=== PATIENT | male | born 1945 | race Caucasian/White ===

== ENCOUNTER 2017-04-19 22:32 | Inpatient (IN) | payer MEDICARE, MEDICAID ==
[2017-04-19 23:18] VITALS: BP 140/80
[2017-04-20] MEDS: Amoxicillin/Clavulanate 500/125 Tab PO SCH ×3 (05:10→21:25)
[2017-04-20] MEDS ORDERED: CARIPRAZINE HCL 1.5 MG PO SCH (09:00)
[2017-04-20] MEDS ORDERED: Non-Formulary Item 1 EA (Fenofibrate Nanocrystallized [Tricor] 145 MG) PO SCH (09:00)
[2017-04-20] MEDS: Multivitamin Tab PO SCH (09:52)
[2017-04-20] MEDS: Pantoprazole 40 mg EC Tab PO SCH (09:52)
[2017-04-20] MEDS: Fluticasone Propionate 0.05mg/Actuation 16gm Nasal Spray NS SCH (09:53)
[2017-04-20] MEDS ORDERED: Probiotic Screen MC PRN (10:00)
[2017-04-20] MEDS: OLANZapine 5 mg Oral Disintegrating Tab SL SCH (16:42)
--- NOTE | 2017-04-21 02:22 | Psychosocial Evaluation ---
DATE OF SERVICE: JUSTIFICATION FOR HOSPITALIZATION: Brought in and on hold for grave disability, disorganized, psychotic and delusional. 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 His address states that he is actually in [place], but it is unclear if he is living at that address. He is pretty disorganized and he is a difficult historian and not answering questions. Focused on being a psychiatrist. PAST PSYCHIATRIC HISTORY: Alludes to admissions in the past. FAMILY HISTORY: Noncontributory. SOCIAL HISTORY: States he was born in [place], not , no kids. States [place] He is a smoker. 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 MEDICATIONS: Reviewed. He states historically he has done well on Clozaril in the past and would like to be restarted on Clozaril. His medications right now include Zyprexa. MENTAL STATUS EXAMINATION: Disheveled, unkempt, rambling speech. Mood "okay." Affect flat. Thought processes were disorganized. No overt SI or HI. He seems to be responding to internal stimuli. Memory was checked. Insight and judgment diminished. PROVISIONAL DIAGNOSIS: Schizophrenia. Medical: Please see full H and P. Also nicotine use disorder, unspecified. ASSESSMENT: The patient requiring inpatient hospitalization, psychotic, disorganized, nonsensical, unable to care for his basic needs, concerns for his ability to provide for basic food, clothing, and group home. PLAN: Continue Klonopin. Continue Zyprexa. We will continue Lamictal if the patient's psychosis continues. I will transition him from Zyprexa to Clozaril, but given Clozaril side effect profile we will try Zyprexa at this time. CONDITIONS FOR DISCHARGE: Improved mood, improved affect, cessation of any SI or HI, better control of his psychotic symptoms, coordination of care with social work regarding safe discharge plan, good psychiatric followup. JOB# [id number]
[2017-04-21] MEDS: Amoxicillin/Clavulanate 500/125 Tab PO SCH ×3 (05:20→21:05)
[2017-04-21] MEDS: Multivitamin Tab PO SCH (08:05)
[2017-04-21] MEDS: Pantoprazole 40 mg EC Tab PO SCH (08:05)
[2017-04-21] MEDS: Fenofibrate, Micronized 134 mg Cap PO SCH (08:05)
[2017-04-21] MEDS: Fluticasone Propionate 0.05mg/Actuation 16gm Nasal Spray NS SCH (08:05)
[2017-04-21] MEDS: OLANZapine 5 mg Oral Disintegrating Tab SL SCH (08:05)
[2017-04-21] MEDS: Lactobacillus Rhamnosus GG 15 Billion CFU CAP.SPRINK PO SCH (08:05)
--- NOTE | 2017-04-21 23:45 | Progress Notes ---
DATE: 04/21/[address] Negrete. Case discussed with staff of the patient, reviewed records. This is a 71-year-old male who was admitted on the 04/19/2017, to the hospital because of a previous paranoid type to be delusional. He believes he is psychiatrist. He has a history of schizophrenia. He was delusional, paranoid. He lives in [place] and ____ he is nonsensical. The patient with a prior admission according to the records. The patient continues to be poor historian. ____ psychotic. He is on Lamictal 50 mg daily. He is on Lexapro 20 mg daily. He is on olanzapine 15 mg at bedtime, 5 mg in the morning and he is also on Ambien 5 mg at bedtime with no side effects, no sedation, no nausea, no extrapyramidal symptoms, so control. The patient in group therapy, milieu therapy, adjust medication as needed. JOB# [id number]
[2017-04-22] MEDS: Amoxicillin/Clavulanate 500/125 Tab PO SCH ×3 (05:35→21:35)
--- NOTE | 2017-04-22 08:22 | History & Physical ---
ADMIT DATE: 04/22/2017 CHIEF COMPLAINT: Agitation. HISTORY OF PRESENT ILLNESS: This is a 71-year-old male, who was originally admitted from [facility] due to pneumonia and dehydration and afterwards the patient was transferred to [facility] for further psychiatric management. REVIEW OF SYSTEM: GENERAL: This is a 71-year-old male, who appears as stated. No fever. No chills. HEAD: No headache. No dizziness. EYES: No eye pain, no blurring of vision. NECK: No neck pain. No nuchal rigidity. CHEST: No chest pain. No palpitation. PULMONARY: No coughing. No shortness of breath. GASTROINTESTINAL: No abdominal pain. No diarrhea. No constipation. MUSCULOSKELETAL: No muscle pain, no joint pain. SOCIAL HISTORY: The patient lives in a board and care prior to hospitalization. PAST SURGICAL HISTORY: Unremarkable. FAMILY HISTORY: Unremarkable. PAST MEDICAL HISTORY: Includes osteoarthritis, hypertension, hyperlipidemia. PHYSICAL EXAMINATION: VITAL SIGNS: Temperature 97, heart rate 63, blood pressure 127/66, respirations 20, 97% on room air. HEENT: Head is atraumatic, normocephalic. Eyes: Bilateral conjunctivae are clear. Bilateral pupils are equally round and reactive. NECK: Supple. No JVD. CARDIOVASCULAR: S1 and S2 without murmur. PULMONARY: Clear to auscultation. GASTROINTESTINAL: Soft and nontender without guarding. Positive bowel sounds. MUSCULOSKELETAL: No clubbing, no cyanosis noted. ASSESSMENT: 1. Schizophrenia. 2. Hypertension. 3. Hyperlipidemia. 4. Osteoarthritis. PLAN: We will admit the patient to psychiatric unit. We will follow up with the psychiatrist to monitor the patient's condition and behavior. Also, we will do medication reconciliation accordingly. Treatment plans were discussed with the patient nurse. Treatment plans discussed with Dr. Robertson. JOB# [id number]
[2017-04-22] MEDS: Multivitamin Tab PO SCH (08:59)
[2017-04-22] MEDS: OLANZapine 5 mg Oral Disintegrating Tab SL SCH (08:59)
[2017-04-22] MEDS: Pantoprazole 40 mg EC Tab PO SCH (08:59)
[2017-04-22] MEDS: Lactobacillus Rhamnosus GG 15 Billion CFU CAP.SPRINK PO SCH (09:00)
[2017-04-22] MEDS: Fenofibrate, Micronized 134 mg Cap PO SCH (09:00)
[2017-04-22] MEDS: Fluticasone Propionate 0.05mg/Actuation 16gm Nasal Spray NS SCH (12:23)
--- NOTE | 2017-04-22 20:29 | Progress Notes ---
DATE: 04/22/[address] Negrete. Case was discussed with staff of patient, reviewed records. The patient continues to be paranoid and delusional. Continues to believe he has ____ and that he is on room air. Continues to be unpredictable, impulsive, needing redirection, easily agitated. He is compliant with the medication with no side effects, no sedation, no nausea, no extrapyramidal symptoms. I will be increasing his Zyprexa dose in the morning to 10 mg and to help with his delusional behavior and we will continue to work with the patient in group therapy, milieu therapy, and adjust medications as needed. JOB# [id number]
[2017-04-23] MEDS: Amoxicillin/Clavulanate 500/125 Tab PO SCH ×3 (05:32→21:28)
[2017-04-23] MEDS: OLANZapine 10 mg Oral Disintegrating Tab SL SCH (08:34)
[2017-04-23] MEDS: Fenofibrate, Micronized 134 mg Cap PO SCH (08:34)
[2017-04-23] MEDS: Multivitamin Tab PO SCH (08:34)
[2017-04-23] MEDS: Pantoprazole 40 mg EC Tab PO SCH (08:34)
[2017-04-23] MEDS: Lactobacillus Rhamnosus GG 15 Billion CFU CAP.SPRINK PO SCH (08:34)
[2017-04-23] MEDS: Fluticasone Propionate 0.05mg/Actuation 16gm Nasal Spray NS SCH (08:36)
--- NOTE | 2017-04-23 10:19 | General Progress Note ---
Subjective - Review of Systems Events since last encounter: continues to be delusional paranoid ,anxious denies pain Objective - Physical Exam Vitals and I&O: Vital Signs Temp 98 F 04/23/17 08:00 Pulse 62 04/23/17 08:33 Resp 20 04/23/17 08:00 BP 125/75 04/23/17 08:33 Pulse Ox 97 04/23/17 08:00 Intake & Output 04/22/17 04/23/17 04/23/17 18:59 06:59 18:59 Intake Total 1200 480 Balance 1200 480 Intake: Oral 1200 480 Other: # Voids 3 2 # Bowel Movements 1 Stool Characteristics Hard Soft Brown Active Medications: Current Medications Acetaminophen (Tylenol) 650 mg PO Q4HR PRN PRN Reason: Mild Pain / Temp above 100 Stop: 06/18/17 23:12 Amlodipine Besylate (Norvasc) 5 mg PO QAM [facility] Stop: 06/19/17 08:59 Last Admin: 04/23/17 08:33 Dose: 5 mg Amoxicillin/Clavulanate Potassium (Augmentin 500-125mg) 1 tab PO Q8HR [facility] Stop: 06/19/17 04:59 Last Admin: 04/23/17 05:32 Dose: 1 tab Azithromycin (Zithromax) 250 mg PO DAILY [facility] Stop: 06/19/17 08:59 Last Admin: 04/23/17 08:34 Dose: 250 mg Clonazepam (Klonopin) 1 mg PO BID [facility] Stop: 06/21/17 08:59 Last Admin: 04/23/17 08:34 Dose: 1 mg Escitalopram Oxalate (Lexapro) 20 mg PO QAM [facility] PRN Reason: Protocol Stop: 06/19/17 08:59 Last Admin: 04/23/17 08:34 Dose: 20 mg Fenofibrate (Tricor) 134 mg PO DAILY [facility] Stop: 06/20/17 08:59 Last Admin: 04/23/17 08:34 Dose: 134 mg Fluticasone Propionate (Flonase) 2 spr NS DAILY [facility] Stop: 06/19/17 08:59 Last Admin: 04/23/17 08:36 Dose: 2 spr Lactobacillus Rhamnosus (Culturelle 15b) 1 each PO DAILY [facility] Stop: 06/20/17 08:59 Last Admin: 04/23/17 08:34 Dose: 1 each Lamotrigine (Lamictal) 150 mg PO QPM [facility] Stop: 06/19/17 16:59 Last Admin: 04/22/17 17:13 Dose: 150 mg Lorazepam (Ativan) 0.5 mg PO Q4HR PRN; Protocol PRN Reason: Anxiety Stop: 05/19/17 23:12 Miscellaneous (Cariprazine Hcl [Vraylar]) 1.5 mg PO QAM [facility] Stop: 06/19/17 08:59 Miscellaneous (Probiotic Screen) 1 ea [facility] PRN PRN PRN Reason: PROTOCOL Stop: 06/19/17 09:59 Multivitamins/Vitamin C (Theragran) 1 tab PO DAILY [facility] Stop: 06/19/17 08:59 Last Admin: 04/23/17 08:34 Dose: 1 tab Olanzapine (Zyprexa) 15 mg PO HS [facility] PRN Reason: Protocol Stop: 06/19/17 20:59 Last Admin: 04/22/17 21:35 Dose: 15 mg Olanzapine (Zyprexa Zydis) 10 mg SL QAM [facility] PRN Reason: Protocol Stop: 06/21/17 13:10 Last Admin: 04/23/17 08:34 Dose: 10 mg Oxybutynin Chloride (Ditropan) 5 mg PO BID [facility] Stop: 06/19/17 08:59 Last Admin: 04/23/17 08:34 Dose: 5 mg Pantoprazole Sodium (Protonix) 40 mg PO DAILY [facility] Stop: 06/19/17 08:59 Last Admin: 04/23/17 08:34 Dose: 40 mg Rivaroxaban (Xarelto) 15 mg PO QPM 1700 [facility] Stop: 06/19/17 16:59 Last Admin: 04/22/17 17:12 Dose: 15 mg Simvastatin (Zocor) 20 mg PO HS [facility] PRN Reason: Protocol Stop: 06/19/17 20:59 Last Admin: 04/22/17 21:35 Dose: 20 mg Zolpidem Tartrate (Ambien) 5 mg PO HS PRN PRN Reason: Insomnia Stop: 06/18/17 23:12 Last Admin: 04/22/17 01:46 Dose: 5 mg General: No acute distress HEENT: Atraumatic Neck: Supple Cardiovascular: Regular rate, Normal S1 Lungs: Clear to auscultation Abdomen: Bowel sounds Assessment/Plan - Problem List Patient Problems: All Active Problems HTN (hypertension) (Acute) I10 Hyperlipidemia (Acute) E78.5 Osteoarthritis (Acute) M19.90 Schizophrenia (Acute) F20.9 - Plan Plan: as per psych will monitor as problems arise
--- NOTE | 2017-04-23 17:51 | Progress Notes ---
DATE: 04/23/[address] Negrete. Case was discussed with staff of the patient, reviewed record. The patient continues to be irritable, confused, needs redirection. Continues to have poor insight. Continues to be easily agitated, irritable. I did increase his Zyprexa dose yesterday with no side effects, no sedation, no nausea, ____ symptoms and he is also on Lexapro 20 mg a day. We will continue to work with the patient in group therapy, milieu therapy, and adjust medication as needed. JOB# [id number]
[2017-04-24] MEDS: Amoxicillin/Clavulanate 500/125 Tab PO SCH ×3 (05:50→21:41)
[2017-04-24] MEDS: Lactobacillus Rhamnosus GG 15 Billion CFU CAP.SPRINK PO SCH (11:39)
[2017-04-24] MEDS: Fluticasone Propionate 0.05mg/Actuation 16gm Nasal Spray NS SCH (11:39)
[2017-04-24] MEDS: OLANZapine 10 mg Oral Disintegrating Tab SL SCH (11:39)
[2017-04-24] MEDS: Fenofibrate, Micronized 134 mg Cap PO SCH (11:39)
[2017-04-24] MEDS: Multivitamin Tab PO SCH (11:39)
[2017-04-24] MEDS: Pantoprazole 40 mg EC Tab PO SCH (11:40)
--- NOTE | 2017-04-24 12:36 | General Progress Note ---
Subjective - Review of Systems Events since last encounter: irritable confused Objective - Physical Exam Vitals and I&O: Vital Signs Temp 97.7 F 04/24/17 06:01 Pulse 54 04/24/17 06:01 Resp 20 04/24/17 06:01 BP 123/60 04/24/17 06:01 Pulse Ox 96 04/24/17 06:01 Intake & Output 04/23/17 04/24/17 04/24/17 18:59 06:59 18:59 Intake Total 700 360 Balance 700 360 Intake: Oral 700 360 Other: # Voids 6 1 # Bowel Movements 1 0 Stool Characteristics Soft Brown Active Medications: Current Medications Acetaminophen (Tylenol) 650 mg PO Q4HR PRN PRN Reason: Mild Pain / Temp above 100 Stop: 06/18/17 23:12 Amlodipine Besylate (Norvasc) 5 mg PO QAM [facility] Stop: 06/19/17 08:59 Last Admin: 04/23/17 08:33 Dose: 5 mg Amoxicillin/Clavulanate Potassium (Augmentin 500-125mg) 1 tab PO Q8HR [facility] Stop: 06/19/17 04:59 Last Admin: 04/24/17 05:50 Dose: 1 tab Azithromycin (Zithromax) 250 mg PO DAILY [facility] Stop: 06/19/17 08:59 Last Admin: 04/23/17 08:34 Dose: 250 mg Clonazepam (Klonopin) 1 mg PO BID [facility] Stop: 06/21/17 08:59 Last Admin: 04/24/17 11:39 Dose: 1 mg Escitalopram Oxalate (Lexapro) 20 mg PO QAM [facility] PRN Reason: Protocol Stop: 06/19/17 08:59 Last Admin: 04/24/17 11:39 Dose: 20 mg Fenofibrate (Tricor) 134 mg PO DAILY [facility] Stop: 06/20/17 08:59 Last Admin: 04/24/17 11:39 Dose: 134 mg Fluticasone Propionate (Flonase) 2 spr NS DAILY [facility] Stop: 06/19/17 08:59 Last Admin: 04/24/17 11:39 Dose: 2 spr Lactobacillus Rhamnosus (Culturelle 15b) 1 each PO DAILY [facility] Stop: 06/20/17 08:59 Last Admin: 04/24/17 11:39 Dose: 1 each Lamotrigine (Lamictal) 150 mg PO QPM [facility] Stop: 06/19/17 16:59 Last Admin: 04/23/17 16:30 Dose: 150 mg Lorazepam (Ativan) 0.5 mg PO Q4HR PRN; Protocol PRN Reason: Anxiety Stop: 05/19/17 23:12 Miscellaneous (Cariprazine Hcl [Vraylar]) 1.5 mg PO QAM [facility] Stop: 06/19/17 08:59 Miscellaneous (Probiotic Screen) 1 ea [facility] PRN PRN PRN Reason: PROTOCOL Stop: 06/19/17 09:59 Multivitamins/Vitamin C (Theragran) 1 tab PO DAILY [facility] Stop: 06/19/17 08:59 Last Admin: 04/24/17 11:39 Dose: 1 tab Olanzapine (Zyprexa) 15 mg PO HS [facility] PRN Reason: Protocol Stop: 06/19/17 20:59 Last Admin: 04/23/17 21:27 Dose: 15 mg Olanzapine (Zyprexa Zydis) 10 mg SL QAM [facility] PRN Reason: Protocol Stop: 06/21/17 13:10 Last Admin: 04/24/17 11:39 Dose: 10 mg Oxybutynin Chloride (Ditropan) 5 mg PO BID [facility] Stop: 06/19/17 08:59 Last Admin: 04/24/17 11:40 Dose: 5 mg Pantoprazole Sodium (Protonix) 40 mg PO DAILY [facility] Stop: 06/19/17 08:59 Last Admin: 04/24/17 11:40 Dose: 40 mg Rivaroxaban (Xarelto) 15 mg PO QPM 1700 [facility] Stop: 06/19/17 16:59 Last Admin: 04/23/17 16:31 Dose: 15 mg Simvastatin (Zocor) 20 mg PO HS [facility] PRN Reason: Protocol Stop: 06/19/17 20:59 Last Admin: 04/23/17 21:28 Dose: 20 mg Zolpidem Tartrate (Ambien) 5 mg PO HS PRN PRN Reason: Insomnia Stop: 06/18/17 23:12 Last Admin: 04/22/17 01:46 Dose: 5 mg General: No acute distress HEENT: Atraumatic Neck: Supple Cardiovascular: Regular rate, Normal S1 Lungs: Clear to auscultation Abdomen: Bowel sounds Assessment/Plan - Problem List Patient Problems: All Active Problems HTN (hypertension) (Acute) I10 Hyperlipidemia (Acute) E78.5 Osteoarthritis (Acute) M19.90 Schizophrenia (Acute) F20.9 - Plan Plan: as per psych will monitor as problems arise
--- NOTE | 2017-04-25 03:37 | Progress Notes ---
DATE: 04/24/2017 SUBJECTIVE: The patient seen, chart reviewed, discussed with staff. The patient remains symptomatic. 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 He seems to be taking his medications. The symptoms seem to be resolving to some extent. For example, he is somewhat calmer, more cooperative, but remains suspicious and reclusive. Medications reviewed. No side effects. ASSESSMENT: The patient remains delusional, paranoid, impulsive and unpredictable. PLAN: We will continue to monitor given ongoing symptoms, he is not safe for discharge. Continue medications at current dose. JOB# [id number]
[2017-04-25] MEDS: Amoxicillin/Clavulanate 500/125 Tab PO SCH ×3 (05:35→21:30)
[2017-04-25] MEDS: OLANZapine 10 mg Oral Disintegrating Tab SL SCH (09:30)
[2017-04-25] MEDS: Fluticasone Propionate 0.05mg/Actuation 16gm Nasal Spray NS SCH (09:30)
[2017-04-25] MEDS: Multivitamin Tab PO SCH (09:30)
[2017-04-25] MEDS: Lactobacillus Rhamnosus GG 15 Billion CFU CAP.SPRINK PO SCH (09:30)
[2017-04-25] MEDS: Fenofibrate, Micronized 134 mg Cap PO SCH (09:30)
[2017-04-25] MEDS: Pantoprazole 40 mg EC Tab PO SCH (09:30)
--- NOTE | 2017-04-25 18:48 | Internal Medicine Prog Note ---
Internal Medicine Subjective - Subjective Service Date: 04/25/17 Patient seen and examined:: with staff Patient is:: awake, confused Per staff patient has:: tolerating meds Internal Medicine Objective - Physical Exam Vitals and I&O: Vital Signs Temp 97 F 04/25/17 16:40 Pulse 84 04/25/17 16:40 Resp 20 04/25/17 16:40 BP 109/66 04/25/17 16:40 Pulse Ox 97 04/25/17 16:40 Intake & Output 04/24/17 04/25/17 04/25/17 18:59 06:59 18:59 Other: # Voids 3 # Bowel Movements 0 Stool Characteristics Hard Hard Hard Active Medications: Current Medications Acetaminophen (Tylenol) 650 mg PO Q4HR PRN PRN Reason: Mild Pain / Temp above 100 Stop: 06/18/17 23:12 Amlodipine Besylate (Norvasc) 5 mg PO QAM [facility] Stop: 06/19/17 08:59 Last Admin: 04/25/17 09:29 Dose: 5 mg Amoxicillin/Clavulanate Potassium (Augmentin 500-125mg) 1 tab PO Q8HR [facility] Stop: 06/19/17 04:59 Last Admin: 04/25/17 16:23 Dose: 1 tab Azithromycin (Zithromax) 250 mg PO DAILY [facility] Stop: 06/19/17 08:59 Last Admin: 04/25/17 09:29 Dose: 250 mg Clonazepam (Klonopin) 1 mg PO BID [facility] Stop: 06/21/17 08:59 Last Admin: 04/25/17 16:24 Dose: 1 mg Escitalopram Oxalate (Lexapro) 20 mg PO QAM [facility] PRN Reason: Protocol Stop: 06/19/17 08:59 Last Admin: 04/25/17 09:29 Dose: 20 mg Fenofibrate (Tricor) 134 mg PO DAILY [facility] Stop: 06/20/17 08:59 Last Admin: 04/25/17 09:30 Dose: 134 mg Fluticasone Propionate (Flonase) 2 spr NS DAILY [facility] Stop: 06/19/17 08:59 Last Admin: 04/25/17 09:30 Dose: 2 spr Lactobacillus Rhamnosus (Culturelle 15b) 1 each PO DAILY [facility] Stop: 06/20/17 08:59 Last Admin: 04/25/17 09:30 Dose: 1 each Lamotrigine (Lamictal) 150 mg PO QPM [facility] Stop: 06/19/17 16:59 Last Admin: 04/25/17 16:23 Dose: 150 mg Lorazepam (Ativan) 0.5 mg PO Q4HR PRN; Protocol PRN Reason: Anxiety Stop: 05/19/17 23:12 Miscellaneous (Cariprazine Hcl [Vraylar]) 1.5 mg PO QAM [facility] Stop: 06/19/17 08:59 Miscellaneous (Probiotic Screen) 1 ea [facility] PRN PRN PRN Reason: PROTOCOL Stop: 06/19/17 09:59 Multivitamins/Vitamin C (Theragran) 1 tab PO DAILY [facility] Stop: 06/19/17 08:59 Last Admin: 04/25/17 09:30 Dose: 1 tab Olanzapine (Zyprexa) 15 mg PO HS [facility] PRN Reason: Protocol Stop: 06/19/17 20:59 Last Admin: 04/24/17 21:37 Dose: 15 mg Olanzapine (Zyprexa Zydis) 10 mg SL QAM [facility] PRN Reason: Protocol Stop: 06/21/17 13:10 Last Admin: 04/25/17 09:30 Dose: 10 mg Oxybutynin Chloride (Ditropan) 5 mg PO BID [facility] Stop: 06/19/17 08:59 Last Admin: 04/25/17 16:23 Dose: 5 mg Pantoprazole Sodium (Protonix) 40 mg PO DAILY [facility] Stop: 06/19/17 08:59 Last Admin: 04/25/17 09:30 Dose: 40 mg Rivaroxaban (Xarelto) 15 mg PO QPM 1700 [facility] Stop: 06/19/17 16:59 Last Admin: 04/25/17 16:23 Dose: 15 mg Simvastatin (Zocor) 20 mg PO HS [facility] PRN Reason: Protocol Stop: 06/19/17 20:59 Last Admin: 04/24/17 21:37 Dose: 20 mg Zolpidem Tartrate (Ambien) 5 mg PO HS PRN PRN Reason: Insomnia Stop: 06/18/17 23:12 Last Admin: 04/24/17 21:37 Dose: 5 mg General: alert HEENT: NC/AT, PERRLA Neck: Supple Lungs: CTAB Extremities: clear Neurological: no change Internal Medicine Assmt/Plan - Plan Plan: as per psych will monitor as problems arise
--- NOTE | 2017-04-26 02:22 | Progress Notes ---
DATE: 04/25/2017 SUBJECTIVE: The patient is still symptomatic, bizarre, still talking of being a psychiatrist; however, he seems calmer, more cooperative. No agitation, no escalation of behaviors. It appears he is taking his medications. Concerns for grave disability, unable to really participate in self-care planning discussion. He states he is homeless. Currently on Zyprexa, tolerating well. ASSESSMENT: The patient remains symptomatic, somewhat withdrawn, still with evidence of psychosis and delusions and grandiosity. PLAN: Continue to monitor, continue to adjust and titrate medications. JOB# [id number]
[2017-04-26] MEDS: Amoxicillin/Clavulanate 500/125 Tab PO SCH ×3 (06:00→21:26)
--- NOTE | 2017-04-26 09:49 | General Progress Note ---
Subjective - Review of Systems Events since last encounter: still confused awak in no distress Objective - Physical Exam Vitals and I&O: Vital Signs Temp 97.9 F 04/26/17 05:36 Pulse 69 04/26/17 05:36 Resp 20 04/26/17 05:36 BP 102/61 04/26/17 05:36 Pulse Ox 94 04/26/17 05:36 Intake & Output 04/25/17 04/26/17 04/26/17 18:59 06:59 18:59 Intake Total 180 Balance 180 Intake: Oral 180 Other: # Voids 1 # Bowel Movements 0 Stool Characteristics Hard Hard Active Medications: Current Medications Acetaminophen (Tylenol) 650 mg PO Q4HR PRN PRN Reason: Mild Pain / Temp above 100 Stop: 06/18/17 23:12 Amlodipine Besylate (Norvasc) 5 mg PO QAM [facility] Stop: 06/19/17 08:59 Last Admin: 04/25/17 09:29 Dose: 5 mg Amoxicillin/Clavulanate Potassium (Augmentin 500-125mg) 1 tab PO Q8HR [facility] Stop: 06/19/17 04:59 Last Admin: 04/26/17 06:00 Dose: 1 tab Azithromycin (Zithromax) 250 mg PO DAILY [facility] Stop: 06/19/17 08:59 Last Admin: 04/25/17 09:29 Dose: 250 mg Clonazepam (Klonopin) 1 mg PO BID [facility] Stop: 06/21/17 08:59 Last Admin: 04/25/17 16:24 Dose: 1 mg Escitalopram Oxalate (Lexapro) 20 mg PO QAM [facility] PRN Reason: Protocol Stop: 06/19/17 08:59 Last Admin: 04/25/17 09:29 Dose: 20 mg Fenofibrate (Tricor) 134 mg PO DAILY [facility] Stop: 06/20/17 08:59 Last Admin: 04/25/17 09:30 Dose: 134 mg Fluticasone Propionate (Flonase) 2 spr NS DAILY [facility] Stop: 06/19/17 08:59 Last Admin: 04/25/17 09:30 Dose: 2 spr Lactobacillus Rhamnosus (Culturelle 15b) 1 each PO DAILY [facility] Stop: 06/20/17 08:59 Last Admin: 04/25/17 09:30 Dose: 1 each Lamotrigine (Lamictal) 150 mg PO QPM [facility] Stop: 06/19/17 16:59 Last Admin: 04/25/17 16:23 Dose: 150 mg Lorazepam (Ativan) 0.5 mg PO Q4HR PRN; Protocol PRN Reason: Anxiety Stop: 05/19/17 23:12 Miscellaneous (Cariprazine Hcl [Vraylar]) 1.5 mg PO QAM [facility] Stop: 06/19/17 08:59 Miscellaneous (Probiotic Screen) 1 ea [facility] PRN PRN PRN Reason: PROTOCOL Stop: 06/19/17 09:59 Multivitamins/Vitamin C (Theragran) 1 tab PO DAILY [facility] Stop: 06/19/17 08:59 Last Admin: 04/25/17 09:30 Dose: 1 tab Olanzapine (Zyprexa) 15 mg PO HS [facility] PRN Reason: Protocol Stop: 06/19/17 20:59 Last Admin: 04/25/17 21:30 Dose: 15 mg Olanzapine (Zyprexa Zydis) 10 mg SL QAM [facility] PRN Reason: Protocol Stop: 06/21/17 13:10 Last Admin: 04/25/17 09:30 Dose: 10 mg Oxybutynin Chloride (Ditropan) 5 mg PO BID [facility] Stop: 06/19/17 08:59 Last Admin: 04/25/17 16:23 Dose: 5 mg Pantoprazole Sodium (Protonix) 40 mg PO DAILY [facility] Stop: 06/19/17 08:59 Last Admin: 04/25/17 09:30 Dose: 40 mg Rivaroxaban (Xarelto) 15 mg PO QPM 1700 [facility] Stop: 06/19/17 16:59 Last Admin: 04/25/17 16:23 Dose: 15 mg Simvastatin (Zocor) 20 mg PO HS [facility] PRN Reason: Protocol Stop: 06/19/17 20:59 Last Admin: 04/25/17 21:30 Dose: 20 mg Zolpidem Tartrate (Ambien) 5 mg PO HS PRN PRN Reason: Insomnia Stop: 06/18/17 23:12 Last Admin: 04/24/17 21:37 Dose: 5 mg General: No acute distress HEENT: Atraumatic Neck: Supple Cardiovascular: Regular rate, Normal S1 Lungs: Clear to auscultation Abdomen: Bowel sounds Assessment/Plan - Problem List Patient Problems: All Active Problems HTN (hypertension) (Acute) I10 Hyperlipidemia (Acute) E78.5 Osteoarthritis (Acute) M19.90 Schizophrenia (Acute) F20.9 - Plan Plan: as per psych will monitor as problems arise
[2017-04-26] MEDS: Pantoprazole 40 mg EC Tab PO SCH (10:02)
[2017-04-26] MEDS: OLANZapine 10 mg Oral Disintegrating Tab SL SCH (10:02)
[2017-04-26] MEDS: Multivitamin Tab PO SCH (10:03)
[2017-04-26] MEDS: Fluticasone Propionate 0.05mg/Actuation 16gm Nasal Spray NS SCH (10:04)
[2017-04-26] MEDS: Fenofibrate, Micronized 134 mg Cap PO SCH (10:17)
[2017-04-26] MEDS: Lactobacillus Rhamnosus GG 15 Billion CFU CAP.SPRINK PO SCH (10:18)
--- NOTE | 2017-04-27 02:59 | Progress Notes ---
DATE: 04/26/2017 The patient is still bizarre. States he has a home to go to at [place] States he has only paid for. 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 The patient is making some nonsensical statements. He is less reclusive, less withdrawn today, still with poor attention ADLs. There are concerns about his ability to take care of himself and function outside of the hospital setting. Medications were reviewed. No overt side effects. ASSESSMENT: The patient remains symptomatic, withdrawn, still psychotic, delusional and grandiose. PLAN: We will continue to monitor. Continue Zyprexa. The patient may benefit from dose adjustments of medications. We will increase nighttime dosing of Zyprexa to 20 mg to try and target residual and ongoing psychotic symptoms. Consider addition of low dose Haldol as an adjunctive strategy. [facility]# [id number]
[2017-04-27] MEDS: Amoxicillin/Clavulanate 500/125 Tab PO SCH ×2 (05:45→16:53)
--- NOTE | 2017-04-27 09:04 | General Progress Note ---
Subjective - Review of Systems Events since last encounter: no change still psychotic Objective - Physical Exam Vitals and I&O: Vital Signs Temp 98.4 F 04/26/17 14:00 Pulse 79 04/26/17 14:00 Resp 18 04/26/17 14:00 BP 104/66 04/26/17 14:00 Pulse Ox 96 04/26/17 14:00 Intake & Output 04/26/17 04/27/17 04/27/17 18:59 06:59 18:59 Intake Total 1200 Balance 1200 Intake: Oral 1200 Other: # Bowel Movements 1 Stool Characteristics Hard Active Medications: Current Medications Acetaminophen (Tylenol) 650 mg PO Q4HR PRN PRN Reason: Mild Pain / Temp above 100 Stop: 06/18/17 23:12 Amlodipine Besylate (Norvasc) 5 mg PO QAM [facility] Stop: 06/19/17 08:59 Last Admin: 04/26/17 10:01 Dose: Not Given Amoxicillin/Clavulanate Potassium (Augmentin 500-125mg) 1 tab PO Q8HR [facility] Stop: 06/19/17 04:59 Last Admin: 04/27/17 05:45 Dose: 1 tab Azithromycin (Zithromax) 250 mg PO DAILY [facility] Stop: 06/19/17 08:59 Last Admin: 04/26/17 10:01 Dose: 250 mg Clonazepam (Klonopin) 1 mg PO BID [facility] Stop: 06/21/17 08:59 Last Admin: 04/26/17 16:35 Dose: 1 mg Escitalopram Oxalate (Lexapro) 20 mg PO QAM [facility] PRN Reason: Protocol Stop: 06/19/17 08:59 Last Admin: 04/26/17 10:01 Dose: 20 mg Fenofibrate (Tricor) 134 mg PO DAILY [facility] Stop: 06/20/17 08:59 Last Admin: 04/26/17 10:17 Dose: 134 mg Fluticasone Propionate (Flonase) 2 spr NS DAILY [facility] Stop: 06/19/17 08:59 Last Admin: 04/26/17 10:04 Dose: 2 spr Lactobacillus Rhamnosus (Culturelle 15b) 1 each PO DAILY [facility] Stop: 06/20/17 08:59 Last Admin: 04/26/17 10:18 Dose: 1 each Lamotrigine (Lamictal) 150 mg PO QPM [facility] Stop: 06/19/17 16:59 Last Admin: 04/26/17 16:37 Dose: 150 mg Lorazepam (Ativan) 0.5 mg PO Q4HR PRN; Protocol PRN Reason: Anxiety Stop: 05/19/17 23:12 Miscellaneous (Cariprazine Hcl [Vraylar]) 1.5 mg PO QAM [facility] Stop: 06/19/17 08:59 Miscellaneous (Probiotic Screen) 1 ea [facility] PRN PRN PRN Reason: PROTOCOL Stop: 06/19/17 09:59 Multivitamins/Vitamin C (Theragran) 1 tab PO DAILY [facility] Stop: 06/19/17 08:59 Last Admin: 04/26/17 10:03 Dose: 1 tab Olanzapine (Zyprexa Zydis) 10 mg SL QAM [facility] PRN Reason: Protocol Stop: 06/21/17 13:10 Last Admin: 04/26/17 10:02 Dose: 10 mg Olanzapine (Zyprexa) 20 mg PO HS [facility] PRN Reason: Protocol Stop: 06/25/17 20:59 Last Admin: 04/26/17 21:27 Dose: 20 mg Oxybutynin Chloride (Ditropan) 5 mg PO BID [facility] Stop: 06/19/17 08:59 Last Admin: 04/26/17 16:39 Dose: 5 mg Pantoprazole Sodium (Protonix) 40 mg PO DAILY [facility] Stop: 06/19/17 08:59 Last Admin: 04/26/17 10:02 Dose: 40 mg Rivaroxaban (Xarelto) 15 mg PO QPM 1700 [facility] Stop: 06/19/17 16:59 Last Admin: 04/26/17 16:39 Dose: 15 mg Simvastatin (Zocor) 20 mg PO HS [facility] PRN Reason: Protocol Stop: 06/19/17 20:59 Last Admin: 04/26/17 21:26 Dose: 20 mg Zolpidem Tartrate (Ambien) 5 mg PO HS PRN PRN Reason: Insomnia Stop: 06/18/17 23:12 Last Admin: 04/24/17 21:37 Dose: 5 mg General: No acute distress HEENT: Atraumatic Neck: Supple Cardiovascular: Regular rate, Normal S1 Lungs: Clear to auscultation Abdomen: Bowel sounds Assessment/Plan - Problem List Patient Problems: All Active Problems HTN (hypertension) (Acute) I10 Hyperlipidemia (Acute) E78.5 Osteoarthritis (Acute) M19.90 Schizophrenia (Acute) F20.9 - Plan Plan: as per psych will monitor as problems arise Nutritional Asmnt/Malnutr-PDOC - Dietary Evaluation Malnutrition Findings (Please click <Entered> for more info): Nutritional Asmnt/Malnutrition Start: 04/26/17 14: 45 Text: Status: Complete Freq: Document 04/26/17 16:55 TOMMY (Rec: 04/26/17 17:04 TOMMY [email or web address]) Nutritional Asmnt/Malnutrition Patient General Information Nutritional Screening Low Risk
[2017-04-27] MEDS: Fenofibrate, Micronized 134 mg Cap PO SCH (10:40)
[2017-04-27] MEDS: Pantoprazole 40 mg EC Tab PO SCH (10:41)
[2017-04-27] MEDS: OLANZapine 10 mg Oral Disintegrating Tab SL SCH (10:41)
[2017-04-27] MEDS: Lactobacillus Rhamnosus GG 15 Billion CFU CAP.SPRINK PO SCH (10:43)
[2017-04-27] MEDS: Multivitamin Tab PO SCH (16:53)
[2017-04-27] MEDS: Fluticasone Propionate 0.05mg/Actuation 16gm Nasal Spray NS SCH (16:53)
--- NOTE | 2017-04-28 07:30 | Progress Notes ---
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 He is pretty disheveled and unkempt, requiring prompting for ADLs, still delusional, grandiose, currently on Zyprexa, seems to be tolerating the current dosing fairly well, but ongoing psychotic symptoms. Good medication compliance. Vitals reviewed. Blood pressure 102/61, pulse rate of 69-79, temperature within normal limits. Medications were reviewed. No EPS noted. No over sedation. ASSESSMENT: The patient remains symptomatic, still with psychosis and delusions. PLAN: We will continue to monitor the patient, gravely disabled, unable to care for his basic needs given his ongoing psychotic symptoms. JOB# [id number]
[2017-04-28] MEDS: Multivitamin Tab PO SCH (09:00)
[2017-04-28] MEDS: Fenofibrate, Micronized 134 mg Cap PO SCH (09:00)
[2017-04-28] MEDS: Lactobacillus Rhamnosus GG 15 Billion CFU CAP.SPRINK PO SCH (09:00)
[2017-04-28] MEDS: OLANZapine 10 mg Oral Disintegrating Tab SL SCH (09:01)
[2017-04-28] MEDS: Pantoprazole 40 mg EC Tab PO SCH (09:01)
[2017-04-28] MEDS: Fluticasone Propionate 0.05mg/Actuation 16gm Nasal Spray NS SCH (09:02)
--- NOTE | 2017-04-28 13:11 | Internal Medicine Prog Note ---
Internal Medicine Subjective - Subjective Service Date: 04/28/17 Patient is:: awake, confused Per staff patient has:: tolerating meds Internal Medicine Objective - Physical Exam Vitals and I&O: Vital Signs Temp 97.7 F 04/28/17 06:00 Pulse 70 04/28/17 09:01 Resp 20 04/28/17 06:00 BP 100/50 04/28/17 09:01 Pulse Ox 98 04/28/17 06:00 Intake & Output 04/27/17 04/28/17 04/28/17 18:59 06:59 18:59 Intake Total 500 Balance 500 Intake: Oral 500 Other: # Voids 2 # Bowel Movements 0 Active Medications: Current Medications Acetaminophen (Tylenol) 650 mg PO Q4HR PRN PRN Reason: Mild Pain / Temp above 100 Stop: 06/18/17 23:12 Amlodipine Besylate (Norvasc) 5 mg PO QAM [facility] Stop: 06/19/17 08:59 Last Admin: 04/28/17 09:01 Dose: Not Given Clonazepam (Klonopin) 1 mg PO BID [facility] Stop: 06/21/17 08:59 Last Admin: 04/28/17 09:00 Dose: 1 mg Escitalopram Oxalate (Lexapro) 20 mg PO QAM [facility] PRN Reason: Protocol Stop: 06/19/17 08:59 Last Admin: 04/28/17 09:00 Dose: 20 mg Fenofibrate (Tricor) 134 mg PO DAILY [facility] Stop: 06/20/17 08:59 Last Admin: 04/28/17 09:00 Dose: 134 mg Fluticasone Propionate (Flonase) 2 spr NS DAILY [facility] Stop: 06/19/17 08:59 Last Admin: 04/28/17 09:02 Dose: 2 spr Lactobacillus Rhamnosus (Culturelle 15b) 1 each PO DAILY [facility] Stop: 06/20/17 08:59 Last Admin: 04/28/17 09:00 Dose: 1 each Lamotrigine (Lamictal) 150 mg PO QPM [facility] Stop: 06/19/17 16:59 Last Admin: 04/27/17 18:06 Dose: 150 mg Lorazepam (Ativan) 0.5 mg PO Q4HR PRN; Protocol PRN Reason: Anxiety Stop: 05/19/17 23:12 Miscellaneous (Cariprazine Hcl [Vraylar]) 1.5 mg PO QAM [facility] Stop: 06/19/17 08:59 Miscellaneous (Probiotic Screen) 1 ea [facility] PRN PRN PRN Reason: PROTOCOL Stop: 06/19/17 09:59 Multivitamins/Vitamin C (Theragran) 1 tab PO DAILY [facility] Stop: 06/19/17 08:59 Last Admin: 04/28/17 09:00 Dose: 1 tab Olanzapine (Zyprexa Zydis) 10 mg SL QAM [facility] PRN Reason: Protocol Stop: 06/21/17 13:10 Last Admin: 04/28/17 09:01 Dose: 10 mg Olanzapine (Zyprexa) 20 mg PO HS [facility] PRN Reason: Protocol Stop: 06/25/17 20:59 Last Admin: 04/27/17 21:44 Dose: 20 mg Oxybutynin Chloride (Ditropan) 5 mg PO BID [facility] Stop: 06/19/17 08:59 Last Admin: 04/28/17 09:00 Dose: 5 mg Pantoprazole Sodium (Protonix) 40 mg PO DAILY [facility] Stop: 06/19/17 08:59 Last Admin: 04/28/17 09:01 Dose: 40 mg Simvastatin (Zocor) 20 mg PO HS [facility] PRN Reason: Protocol Stop: 06/19/17 20:59 Last Admin: 04/27/17 21:44 Dose: 20 mg Zolpidem Tartrate (Ambien) 5 mg PO HS PRN PRN Reason: Insomnia Stop: 06/18/17 23:12 Last Admin: 04/24/17 21:37 Dose: 5 mg General: alert HEENT: NC/AT, PERRLA Neck: Supple Lungs: CTAB Extremities: clear Neurological: no change Internal Medicine Assmt/Plan - Assessment Assessment: SCHIZPHRENIA HTN HYPERLIPIDEMIA OBESITY - Plan Plan: safety precautions continue current orders Nutritional Asmnt/Malnutr-PDOC - Dietary Evaluation Malnutrition Findings (Please click <Entered> for more info): Nutritional Asmnt/Malnutrition Start: 04/26/17 14: 45 Text: Status: Complete Freq: Document 04/26/17 16:55 LCHENG (Rec: 04/26/17 17:04 LCJO ANN [email or web address]) Nutritional Asmnt/Malnutrition Patient General Information Nutritional Screening Low Risk
--- NOTE | 2017-04-28 13:21 | Internal Medicine Prog Note ---
Internal Medicine Subjective - Subjective Service Date: 04/28/17 Patient is:: awake, confused Per staff patient has:: tolerating meds Internal Medicine Objective - Physical Exam Vitals and I&O: Vital Signs Temp 97.7 F 04/28/17 06:00 Pulse 70 04/28/17 09:01 Resp 20 04/28/17 06:00 BP 100/50 04/28/17 09:01 Pulse Ox 98 04/28/17 06:00 Intake & Output 04/27/17 04/28/17 04/28/17 18:59 06:59 18:59 Intake Total 500 Balance 500 Intake: Oral 500 Other: # Voids 2 # Bowel Movements 0 Active Medications: Current Medications Acetaminophen (Tylenol) 650 mg PO Q4HR PRN PRN Reason: Mild Pain / Temp above 100 Stop: 06/18/17 23:12 Amlodipine Besylate (Norvasc) 5 mg PO QAM [facility] Stop: 06/19/17 08:59 Last Admin: 04/28/17 09:01 Dose: Not Given Clonazepam (Klonopin) 1 mg PO BID [facility] Stop: 06/21/17 08:59 Last Admin: 04/28/17 09:00 Dose: 1 mg Escitalopram Oxalate (Lexapro) 20 mg PO QAM [facility] PRN Reason: Protocol Stop: 06/19/17 08:59 Last Admin: 04/28/17 09:00 Dose: 20 mg Fenofibrate (Tricor) 134 mg PO DAILY [facility] Stop: 06/20/17 08:59 Last Admin: 04/28/17 09:00 Dose: 134 mg Fluticasone Propionate (Flonase) 2 spr NS DAILY [facility] Stop: 06/19/17 08:59 Last Admin: 04/28/17 09:02 Dose: 2 spr Lactobacillus Rhamnosus (Culturelle 15b) 1 each PO DAILY [facility] Stop: 06/20/17 08:59 Last Admin: 04/28/17 09:00 Dose: 1 each Lamotrigine (Lamictal) 150 mg PO QPM [facility] Stop: 06/19/17 16:59 Last Admin: 04/27/17 18:06 Dose: 150 mg Lorazepam (Ativan) 0.5 mg PO Q4HR PRN; Protocol PRN Reason: Anxiety Stop: 05/19/17 23:12 Miscellaneous (Cariprazine Hcl [Vraylar]) 1.5 mg PO QAM [facility] Stop: 06/19/17 08:59 Miscellaneous (Probiotic Screen) 1 ea MC PRN PRN PRN Reason: PROTOCOL Stop: 06/19/17 09:59 Multivitamins/Vitamin C (Theragran) 1 tab PO DAILY [facility] Stop: 06/19/17 08:59 Last Admin: 04/28/17 09:00 Dose: 1 tab Olanzapine (Zyprexa Zydis) 10 mg SL QAM [facility] PRN Reason: Protocol Stop: 06/21/17 13:10 Last Admin: 04/28/17 09:01 Dose: 10 mg Olanzapine (Zyprexa) 20 mg PO HS [facility] PRN Reason: Protocol Stop: 06/25/17 20:59 Last Admin: 04/27/17 21:44 Dose: 20 mg Oxybutynin Chloride (Ditropan) 5 mg PO BID [facility] Stop: 06/19/17 08:59 Last Admin: 04/28/17 09:00 Dose: 5 mg Pantoprazole Sodium (Protonix) 40 mg PO DAILY [facility] Stop: 06/19/17 08:59 Last Admin: 04/28/17 09:01 Dose: 40 mg Simvastatin (Zocor) 20 mg PO HS [facility] PRN Reason: Protocol Stop: 06/19/17 20:59 Last Admin: 04/27/17 21:44 Dose: 20 mg Zolpidem Tartrate (Ambien) 5 mg PO HS PRN PRN Reason: Insomnia Stop: 06/18/17 23:12 Last Admin: 04/24/17 21:37 Dose: 5 mg General: alert HEENT: NC/AT, PERRLA Neck: Supple Lungs: CTAB Extremities: clear Neurological: no change Internal Medicine Assmt/Plan - Assessment Assessment: SCHIZPHRENIA HTN HYPERLIPIDEMIA OBESITY - Plan Plan: safety precautions continue current orders Nutritional Asmnt/Malnutr-PDOC - Dietary Evaluation Malnutrition Findings (Please click <Entered> for more info): Nutritional Asmnt/Malnutrition Start: 04/26/17 14: 45 Text: Status: Complete Freq: Document 04/26/17 16:55 LCHENG (Rec: 04/26/17 17:04 LCJO ANN [email or web address]) Nutritional Asmnt/Malnutrition Patient General Information Nutritional Screening Low Risk
--- NOTE | 2017-04-28 22:49 | Progress Notes ---
DATE: 04/28/[address] Negrete. Case was discussed with staff of the patient, reviewed records. The patient is a well-known patient who I have seen him before Covering for Dr. Negrete. The patient can still be delusional and paranoid, just look disheveled, unkempt, unable to carry on a conversation. He is compliant with the medication with no side effects, no sedation, no nausea, no extrapyramidal symptoms. He is on Lamictal 150 mg in the evening. His olanzapine was increased 2 days ago to 20 mg at bedtime and 10 mg in the morning with no side effects, no sedation nausea, no extrapyramidal symptoms and we will continue to work with the patient in group therapy, milieu therapy, adjust medication as needed. JOB# [id number]
[2017-04-29] MEDS: Lactobacillus Rhamnosus GG 15 Billion CFU CAP.SPRINK PO SCH (09:31)
[2017-04-29] MEDS: Fenofibrate, Micronized 134 mg Cap PO SCH (09:31)
[2017-04-29] MEDS: Multivitamin Tab PO SCH (09:31)
[2017-04-29] MEDS: Pantoprazole 40 mg EC Tab PO SCH (09:31)
[2017-04-29] MEDS: Fluticasone Propionate 0.05mg/Actuation 16gm Nasal Spray NS SCH (09:33)
[2017-04-29] MEDS: OLANZapine 10 mg Oral Disintegrating Tab SL SCH (09:33)
--- NOTE | 2017-04-29 23:31 | Progress Notes ---
DATE: 04/29/2017 SUBJECTIVE: The patient was seen in the dining area, having breakfast. The patient appears to be guarded and irritable. Otherwise, the patient is in no acute distress. OBJECTIVE: VITAL SIGNS: Temperature 97.9, heart rate 78, respiratory rate 18, blood pressure 104/54, and 98% on room air. HEENT: Head is atraumatic and normocephalic. Eyes: Bilateral conjunctivae are clear. Bilateral pupils are equally round and reactive. NECK: Supple. No JVD. CARDIOVASCULAR: S1 and S2, without murmur. PULMONARY: Clear to auscultation. GASTROINTESTINAL: Soft and nontender without guarding. Positive bowel sounds. MUSCULOSKELETAL: No clubbing, no cyanosis noted. ASSESSMENT: 1. Schizophrenia. 2. Hypertension. 3. Hyperlipidemia. 4. Osteoarthritis. 5. Obesity. PLAN: We will continue to keep the patient inpatient, will follow up with the psychiatrist to monitor the patient's condition and behavior. Treatment plans were discussed with the patient's nurse. Treatment plans were discussed with Dr. Robertson. JOB# [id number]
[2017-04-30] MEDS: Multivitamin Tab PO SCH (08:35)
[2017-04-30] MEDS: Fenofibrate, Micronized 134 mg Cap PO SCH (08:37)
[2017-04-30] MEDS: Lactobacillus Rhamnosus GG 15 Billion CFU CAP.SPRINK PO SCH (08:37)
[2017-04-30] MEDS: OLANZapine 10 mg Oral Disintegrating Tab SL SCH (08:37)
[2017-04-30] MEDS: Fluticasone Propionate 0.05mg/Actuation 16gm Nasal Spray NS SCH (08:38)
[2017-04-30] MEDS: Pantoprazole 40 mg EC Tab PO SCH (08:38)
--- NOTE | 2017-04-30 10:05 | General Progress Note ---
Subjective - Review of Systems Events since last encounter: patient irritable in no distress Objective - Results Recent Labs: Laboratory Last Values POC Glucose 292 MG/DL (70 - 105) H 04/29/17 12:03 - Physical Exam Vitals and I&O: Vital Signs Temp 97.8 F 04/29/17 14:00 Pulse 74 04/30/17 08:35 Resp 19 04/29/17 20:00 BP 108/60 04/30/17 08:35 Pulse Ox 98 04/29/17 14:00 Intake & Output 04/29/17 04/30/17 04/30/17 18:59 06:59 18:59 Intake Total 1800 Balance 1800 Intake: Oral 1800 Other: # Voids 4 # Bowel Movements 1 Active Medications: Current Medications Acetaminophen (Tylenol) 650 mg PO Q4HR PRN PRN Reason: Mild Pain / Temp above 100 Stop: 06/18/17 23:12 Amlodipine Besylate (Norvasc) 5 mg PO QAM [facility] Stop: 06/19/17 08:59 Last Admin: 04/30/17 08:35 Dose: Not Given Clonazepam (Klonopin) 1 mg PO BID [facility] Stop: 06/21/17 08:59 Last Admin: 04/30/17 08:36 Dose: 1 mg Escitalopram Oxalate (Lexapro) 20 mg PO QAM [facility] PRN Reason: Protocol Stop: 06/19/17 08:59 Last Admin: 04/30/17 08:37 Dose: 20 mg Fenofibrate (Tricor) 134 mg PO DAILY [facility] Stop: 06/20/17 08:59 Last Admin: 04/30/17 08:37 Dose: 134 mg Fluticasone Propionate (Flonase) 2 spr NS DAILY [facility] Stop: 06/19/17 08:59 Last Admin: 04/30/17 08:38 Dose: 2 spr Lactobacillus Rhamnosus (Culturelle 15b) 1 each PO DAILY [facility] Stop: 06/20/17 08:59 Last Admin: 04/30/17 08:37 Dose: 1 each Lamotrigine (Lamictal) 150 mg PO QPM [facility] Stop: 06/19/17 16:59 Last Admin: 04/29/17 17:23 Dose: 150 mg Lorazepam (Ativan) 0.5 mg PO Q4HR PRN; Protocol PRN Reason: Anxiety Stop: 05/19/17 23:12 Miscellaneous (Cariprazine Hcl [Vraylar]) 1.5 mg PO QAM [facility] Stop: 06/19/17 08:59 Miscellaneous (Probiotic Screen) 1 ea MC PRN PRN PRN Reason: PROTOCOL Stop: 06/19/17 09:59 Multivitamins/Vitamin C (Theragran) 1 tab PO DAILY [facility] Stop: 06/19/17 08:59 Last Admin: 04/30/17 08:35 Dose: 1 tab Olanzapine (Zyprexa Zydis) 10 mg SL QAM [facility] PRN Reason: Protocol Stop: 06/21/17 13:10 Last Admin: 04/30/17 08:37 Dose: 10 mg Olanzapine (Zyprexa) 20 mg PO HS [facility] PRN Reason: Protocol Stop: 06/25/17 20:59 Last Admin: 04/29/17 20:55 Dose: 20 mg Oxybutynin Chloride (Ditropan) 5 mg PO BID [facility] Stop: 06/19/17 08:59 Last Admin: 04/30/17 08:37 Dose: 5 mg Pantoprazole Sodium (Protonix) 40 mg PO DAILY [facility] Stop: 06/19/17 08:59 Last Admin: 04/30/17 08:38 Dose: 40 mg Simvastatin (Zocor) 20 mg PO HS [facility] PRN Reason: Protocol Stop: 06/19/17 20:59 Last Admin: 04/29/17 20:55 Dose: 20 mg Zolpidem Tartrate (Ambien) 5 mg PO HS PRN PRN Reason: Insomnia Stop: 06/18/17 23:12 Last Admin: 04/24/17 21:37 Dose: 5 mg General: No acute distress HEENT: Atraumatic Neck: Supple Cardiovascular: Regular rate, Normal S1 Lungs: Clear to auscultation Abdomen: Bowel sounds Assessment/Plan - Problem List Patient Problems: All Active Problems HTN (hypertension) (Acute) I10 Hyperlipidemia (Acute) E78.5 Osteoarthritis (Acute) M19.90 Schizophrenia (Acute) F20.9 - Plan Plan: as per psych will monitor as problems arise Nutritional Asmnt/Malnutr-PDOC - Dietary Evaluation Malnutrition Findings (Please click <Entered> for more info): Nutritional Asmnt/Malnutrition Start: 04/26/17 14: 45 Text: Status: Complete Freq: Document 04/26/17 16:55 ALBIN (Rec: 04/26/17 17:04 ALBIN [email or web address]) Nutritional Asmnt/Malnutrition Patient General Information Nutritional Screening Low Risk
--- NOTE | 2017-04-30 20:31 | Psychosocial Evaluation ---
DATE OF SERVICE: This is Dr. Gallegos covering for Dr. Negrete. SUBJECTIVE: The patient was seen and evaluated. The patient's chart reviewed. He is a 71-year-old male, who was brought in here with a history of schizophrenia, presenting very disorganized and delusional, initiated on Zyprexa. Overnight nursing staff reported that the patient presents very delusional and disengaged. Today on [id number] evaluation, the patient is observed to be easily disorganized, derails. He believes he lives at home and that this is his house, unable to give much more information beyond that. MENTAL STATUS EXAMINATION: Disorganized, delusional, no side effects of medication. ASSESSMENT AND PLAN: The patient is a 71-year-old male with a history of severe chronic schizophrenia, unable to formulate a safe plan. We will continue with the current medication regimen as Zyprexa is currently maximized to 30 mg a day to target the patient's severe disorganized thought process and also Lexapro at 20 mg to target the patient's underlying severe depression with clonazepam to target the patient's severe anxiety. [facility]# [id number]
--- NOTE | 2017-05-01 01:49 | Progress Notes ---
DATE: This is Dr. Gallegos covering for Dr. Negrete. SUBJECTIVE: The patient was seen and evaluated. The patient's chart reviewed. Overnight, nursing staff reported that the patient mostly been isolative, withdrawn, and easily suspicious. Today on [id number] evaluation, the patient is disheveled, unkempt, malodorous, disengaged in the interview. MENTAL STATUS EXAMINATION: Thought blocking, responding to internal stimuli, distraught. ASSESSMENT AND PLAN: The patient is a 71-year-old male with a history of schizophrenia. We will continue with the current medication regimen, as it was recently increased to 20 mg to target the patient's behavior disturbances and responding to internal stimuli. [facility]# [id number]
[2017-05-01] MEDS: OLANZapine 10 mg Oral Disintegrating Tab SL SCH (09:45)
[2017-05-01] MEDS: Multivitamin Tab PO SCH (09:45)
[2017-05-01] MEDS: Pantoprazole 40 mg EC Tab PO SCH (09:46)
[2017-05-01] MEDS: Lactobacillus Rhamnosus GG 15 Billion CFU CAP.SPRINK PO SCH (09:48)
[2017-05-01] MEDS: Fluticasone Propionate 0.05mg/Actuation 16gm Nasal Spray NS SCH (09:48)
[2017-05-01] MEDS: Fenofibrate, Micronized 134 mg Cap PO SCH (09:49)
--- NOTE | 2017-05-01 10:13 | General Progress Note ---
Subjective - Review of Systems Events since last encounter: patient is paranoid depressed withdrawn in no distress Objective - Results Recent Labs: Laboratory Last Values POC Glucose 292 MG/DL (70 - 105) H 04/29/17 12:03 - Physical Exam Vitals and I&O: Vital Signs Temp 97.8 F 05/01/17 06:24 Pulse 67 05/01/17 09:47 Resp 18 05/01/17 06:24 BP 118/64 05/01/17 09:47 Pulse Ox 96 05/01/17 06:24 Intake & Output 04/30/17 05/01/17 05/01/17 18:59 06:59 18:59 Intake Total 2400 120 Balance 2400 120 Intake: Oral 2400 120 Other: # Voids 4 2 # Bowel Movements 1 1 Stool Characteristics Formed Formed Brown Brown Active Medications: Current Medications Acetaminophen (Tylenol) 650 mg PO Q4HR PRN PRN Reason: Mild Pain / Temp above 100 Stop: 06/18/17 23:12 Amlodipine Besylate (Norvasc) 5 mg PO QAM [facility] Stop: 06/19/17 08:59 Last Admin: 05/01/17 09:47 Dose: 5 mg Clonazepam (Klonopin) 1 mg PO BID [facility] Stop: 06/21/17 08:59 Last Admin: 05/01/17 09:48 Dose: 1 mg Escitalopram Oxalate (Lexapro) 20 mg PO QAM [facility] PRN Reason: Protocol Stop: 06/19/17 08:59 Last Admin: 05/01/17 09:48 Dose: 20 mg Fenofibrate (Tricor) 134 mg PO DAILY [facility] Stop: 06/20/17 08:59 Last Admin: 05/01/17 09:49 Dose: 134 mg Fluticasone Propionate (Flonase) 2 spr NS DAILY [facility] Stop: 06/19/17 08:59 Last Admin: 04/30/17 08:38 Dose: 2 spr Lactobacillus Rhamnosus (Culturelle 15b) 1 each PO DAILY [facility] Stop: 06/20/17 08:59 Last Admin: 05/01/17 09:48 Dose: 1 each Lamotrigine (Lamictal) 150 mg PO QPM [facility] Stop: 06/19/17 16:59 Last Admin: 04/30/17 16:45 Dose: 150 mg Lorazepam (Ativan) 0.5 mg PO Q4HR PRN; Protocol PRN Reason: Anxiety Stop: 05/19/17 23:12 Miscellaneous (Cariprazine Hcl [Vraylar]) 1.5 mg PO QAM [facility] Stop: 06/19/17 08:59 Miscellaneous (Probiotic Screen) 1 ea MC PRN PRN PRN Reason: PROTOCOL Stop: 06/19/17 09:59 Multivitamins/Vitamin C (Theragran) 1 tab PO DAILY [facility] Stop: 06/19/17 08:59 Last Admin: 05/01/17 09:45 Dose: 1 tab Olanzapine (Zyprexa Zydis) 10 mg SL QAM [facility] PRN Reason: Protocol Stop: 06/21/17 13:10 Last Admin: 05/01/17 09:45 Dose: 10 mg Olanzapine (Zyprexa) 20 mg PO HS [facility] PRN Reason: Protocol Stop: 06/25/17 20:59 Last Admin: 04/30/17 21:01 Dose: 20 mg Oxybutynin Chloride (Ditropan) 5 mg PO BID [facility] Stop: 06/19/17 08:59 Last Admin: 05/01/17 09:49 Dose: 5 mg Pantoprazole Sodium (Protonix) 40 mg PO DAILY [facility] Stop: 06/19/17 08:59 Last Admin: 05/01/17 09:46 Dose: 40 mg Simvastatin (Zocor) 20 mg PO HS [facility] PRN Reason: Protocol Stop: 06/19/17 20:59 Last Admin: 04/30/17 21:02 Dose: 20 mg Zolpidem Tartrate (Ambien) 5 mg PO HS PRN PRN Reason: Insomnia Stop: 06/18/17 23:12 Last Admin: 04/24/17 21:37 Dose: 5 mg General: No acute distress HEENT: Atraumatic Neck: Supple Cardiovascular: Regular rate, Normal S1 Lungs: Clear to auscultation Abdomen: Bowel sounds Assessment/Plan - Problem List Patient Problems: All Active Problems HTN (hypertension) (Acute) I10 Hyperlipidemia (Acute) E78.5 Osteoarthritis (Acute) M19.90 Schizophrenia (Acute) F20.9 - Plan Plan: as per psych will monitor as problems arise Nutritional Asmnt/Malnutr-PDOC - Dietary Evaluation Malnutrition Findings (Please click <Entered> for more info): Nutritional Asmnt/Malnutrition Start: 04/26/17 14: 45 Text: Status: Complete Freq: Document 04/26/17 16:55 ALBIN (Rec: 04/26/17 17:04 ALBIN RUSSELL-[facility]) Nutritional Asmnt/Malnutrition Patient General Information Nutritional Screening Low Risk
--- NOTE | 2017-05-02 07:22 | Progress Notes ---
DATE: 05/01/2017 SUBJECTIVE: The patient was seen and evaluated. The patient's chart reviewed. This is Dr. Gallegos covering for Dr. Negrete. Overnight, nursing staff reported the patient mostly be disengaged, isolated, easily suspicious, and malodorous and unkempt. Today on [id number] evaluation, the patient was observed to be very distraught, overwhelmed, in his room with thought blocking and responding to internal stimuli. MENTAL STATUS EXAMINATION: Stable from yesterday with thought blocking, responding to internal stimuli. Poor insight, judgment, and impulse control. ASSESSMENT: A 71-year-old male with a history of schizophrenia, recently Zyprexa was increased to 20 mg to target the patient's severe behavior disturbance since this patient has active psychotic symptoms that interfere with ability to provide food, half-way, clothing, and formulate a safe. PLAN: We will continue with the current medication. JOB# [id number] [email or web address]
[2017-05-02] MEDS: Pantoprazole 40 mg EC Tab PO SCH (08:16)
[2017-05-02] MEDS: Multivitamin Tab PO SCH (08:16)
[2017-05-02] MEDS: OLANZapine 10 mg Oral Disintegrating Tab SL SCH (08:16)
[2017-05-02] MEDS: Lactobacillus Rhamnosus GG 15 Billion CFU CAP.SPRINK PO SCH (08:16)
[2017-05-02] MEDS: Fenofibrate, Micronized 134 mg Cap PO SCH (08:16)
[2017-05-02] MEDS: Fluticasone Propionate 0.05mg/Actuation 16gm Nasal Spray NS SCH (09:00)
--- NOTE | 2017-05-02 21:06 | Internal Medicine Prog Note ---
Internal Medicine Subjective - Subjective Service Date: 05/02/17 Patient is:: awake, confused Per staff patient has:: tolerating meds Internal Medicine Objective - Results Recent Labs: Laboratory Last Values POC Glucose 292 MG/DL (70 - 105) H 04/29/17 12:03 - Physical Exam Vitals and I&O: Vital Signs Temp 97.6 F 05/02/17 20:00 Pulse 55 05/02/17 20:00 Resp 20 05/02/17 20:00 BP 107/66 05/02/17 20:00 Pulse Ox 97 05/02/17 20:00 Intake & Output 05/02/17 05/02/17 05/03/17 06:59 18:59 06:59 Intake Total 240 1000 240 Balance 240 1000 240 Intake: Oral 240 1000 240 Other: # Voids 1 4 1 # Bowel Movements 1 Active Medications: Current Medications Acetaminophen (Tylenol) 650 mg PO Q4HR PRN PRN Reason: Mild Pain / Temp above 100 Stop: 06/18/17 23:12 Amlodipine Besylate (Norvasc) 5 mg PO QAM [facility] Stop: 06/19/17 08:59 Last Admin: 05/02/17 08:16 Dose: Not Given Clonazepam (Klonopin) 1 mg PO BID [facility] Stop: 06/21/17 08:59 Last Admin: 05/02/17 16:41 Dose: 1 mg Escitalopram Oxalate (Lexapro) 20 mg PO QAM [facility] PRN Reason: Protocol Stop: 06/19/17 08:59 Last Admin: 05/02/17 08:16 Dose: 20 mg Fenofibrate (Tricor) 134 mg PO DAILY [facility] Stop: 06/20/17 08:59 Last Admin: 05/02/17 08:16 Dose: 134 mg Fluticasone Propionate (Flonase) 2 spr NS DAILY [facility] Stop: 06/19/17 08:59 Last Admin: 05/02/17 09:00 Dose: Not Given Lactobacillus Rhamnosus (Culturelle 15b) 1 each PO DAILY [facility] Stop: 06/20/17 08:59 Last Admin: 05/02/17 08:16 Dose: 1 each Lamotrigine (Lamictal) 150 mg PO QPM [facility] Stop: 06/19/17 16:59 Last Admin: 05/02/17 16:40 Dose: 150 mg Lorazepam (Ativan) 0.5 mg PO Q4HR PRN; Protocol PRN Reason: Anxiety Stop: 05/19/17 23:12 Miscellaneous (Cariprazine Hcl [Vraylar]) 1.5 mg PO QAM [facility] Stop: 06/19/17 08:59 Miscellaneous (Probiotic Screen) 1 ea [facility] PRN PRN PRN Reason: PROTOCOL Stop: 06/19/17 09:59 Multivitamins/Vitamin C (Theragran) 1 tab PO DAILY [facility] Stop: 06/19/17 08:59 Last Admin: 05/02/17 08:16 Dose: 1 tab Olanzapine (Zyprexa Zydis) 10 mg SL QAM [facility] PRN Reason: Protocol Stop: 06/21/17 13:10 Last Admin: 05/02/17 08:16 Dose: 10 mg Olanzapine (Zyprexa) 20 mg PO HS [facility] PRN Reason: Protocol Stop: 06/25/17 20:59 Last Admin: 05/02/17 20:28 Dose: 20 mg Oxybutynin Chloride (Ditropan) 5 mg PO BID [facility] Stop: 06/19/17 08:59 Last Admin: 05/02/17 16:41 Dose: 5 mg Pantoprazole Sodium (Protonix) 40 mg PO DAILY [facility] Stop: 06/19/17 08:59 Last Admin: 05/02/17 08:16 Dose: 40 mg Simvastatin (Zocor) 20 mg PO HS [facility] PRN Reason: Protocol Stop: 06/19/17 20:59 Last Admin: 05/02/17 20:28 Dose: 20 mg Zolpidem Tartrate (Ambien) 5 mg PO HS PRN PRN Reason: Insomnia Stop: 06/18/17 23:12 Last Admin: 04/24/17 21:37 Dose: 5 mg General: alert HEENT: NC/AT, PERRLA Neck: Supple Lungs: CTAB Extremities: clear Neurological: no change Internal Medicine Assmt/Plan - Assessment Assessment: SCHIZPHRENIA HTN HYPERLIPIDEMIA OBESITY - Plan Plan: safety precautions continue current orders Nutritional Asmnt/Malnutr-PDOC - Dietary Evaluation Malnutrition Findings (Please click <Entered> for more info): Nutritional Asmnt/Malnutrition Start: 04/26/17 14: 45 Text: Status: Complete Freq: Document 04/26/17 16:55 LCHENG (Rec: 04/26/17 17:04 ALBIN [email or web address]) Nutritional Asmnt/Malnutrition Patient General Information Nutritional Screening Low Risk
--- NOTE | 2017-05-03 06:30 | Progress Notes ---
DATE: 05/02/2017 SUBJECTIVE: The patient remains disorganized, on exam, still somewhat confused, distraught, still with some responding to internal stimuli, but he has been calmer, more cooperative. Long history of schizophrenia. There is a good chance he is approaching his baseline. He has been calm, cooperative, no agitation, somewhat suspicious and isolative and occlusive, but denying any overt SI. Sleeping well, eating well. ASSESSMENT: The patient is likely approaching his baseline, calm, cooperative, amenable to treatment, amenable to placement. PLAN: We will continue to monitor, continue to titrate and adjust medications. [facility]# [id number]
[2017-05-03] MEDS: Fluticasone Propionate 0.05mg/Actuation 16gm Nasal Spray NS SCH (08:56)
[2017-05-03] MEDS: Lactobacillus Rhamnosus GG 15 Billion CFU CAP.SPRINK PO SCH (08:56)
[2017-05-03] MEDS: OLANZapine 10 mg Oral Disintegrating Tab SL SCH (08:56)
[2017-05-03] MEDS: Multivitamin Tab PO SCH (08:57)
[2017-05-03] MEDS: Fenofibrate, Micronized 134 mg Cap PO SCH (08:57)
[2017-05-03] MEDS: Pantoprazole 40 mg EC Tab PO SCH (08:57)
--- NOTE | 2017-05-03 09:53 | General Progress Note ---
Subjective - Review of Systems Events since last encounter: tolerating meds in no distress Objective - Results Recent Labs: Laboratory Last Values POC Glucose 292 MG/DL (70 - 105) H 04/29/17 12:03 - Physical Exam Vitals and I&O: Vital Signs Temp 98.6 F 05/03/17 06:04 Pulse 74 05/03/17 09:00 Resp 18 05/03/17 06:04 BP 109/63 05/03/17 09:00 Pulse Ox 96 05/03/17 06:04 Intake & Output 05/02/17 05/03/17 05/03/17 18:59 06:59 18:59 Intake Total 1000 240 Balance 1000 240 Intake: Oral 1000 240 Other: # Voids 4 3 # Bowel Movements 1 0 Active Medications: Current Medications Acetaminophen (Tylenol) 650 mg PO Q4HR PRN PRN Reason: Mild Pain / Temp above 100 Stop: 06/18/17 23:12 Amlodipine Besylate (Norvasc) 5 mg PO QAM [facility] Stop: 06/19/17 08:59 Last Admin: 05/03/17 09:00 Dose: 5 mg Clonazepam (Klonopin) 1 mg PO BID [facility] Stop: 06/21/17 08:59 Last Admin: 05/03/17 08:57 Dose: 1 mg Escitalopram Oxalate (Lexapro) 20 mg PO QAM [facility] PRN Reason: Protocol Stop: 06/19/17 08:59 Last Admin: 05/03/17 08:56 Dose: 20 mg Fenofibrate (Tricor) 134 mg PO DAILY [facility] Stop: 06/20/17 08:59 Last Admin: 05/03/17 08:57 Dose: 134 mg Fluticasone Propionate (Flonase) 2 spr NS DAILY [facility] Stop: 06/19/17 08:59 Last Admin: 05/03/17 08:56 Dose: 2 spr Lactobacillus Rhamnosus (Culturelle 15b) 1 each PO DAILY [facility] Stop: 06/20/17 08:59 Last Admin: 05/03/17 08:56 Dose: 1 each Lamotrigine (Lamictal) 150 mg PO QPM [facility] Stop: 06/19/17 16:59 Last Admin: 05/02/17 16:40 Dose: 150 mg Lorazepam (Ativan) 0.5 mg PO Q4HR PRN; Protocol PRN Reason: Anxiety Stop: 05/19/17 23:12 Miscellaneous (Cariprazine Hcl [Vraylar]) 1.5 mg PO QAM [facility] Stop: 06/19/17 08:59 Miscellaneous (Probiotic Screen) 1 ea [facility] PRN PRN PRN Reason: PROTOCOL Stop: 06/19/17 09:59 Multivitamins/Vitamin C (Theragran) 1 tab PO DAILY [facility] Stop: 06/19/17 08:59 Last Admin: 05/03/17 08:57 Dose: 1 tab Olanzapine (Zyprexa Zydis) 10 mg SL QAM [facility] PRN Reason: Protocol Stop: 06/21/17 13:10 Last Admin: 05/03/17 08:56 Dose: 10 mg Olanzapine (Zyprexa) 20 mg PO HS [facility] PRN Reason: Protocol Stop: 06/25/17 20:59 Last Admin: 05/02/17 20:28 Dose: 20 mg Oxybutynin Chloride (Ditropan) 5 mg PO BID [facility] Stop: 06/19/17 08:59 Last Admin: 05/03/17 08:56 Dose: 5 mg Pantoprazole Sodium (Protonix) 40 mg PO DAILY [facility] Stop: 06/19/17 08:59 Last Admin: 05/03/17 08:57 Dose: 40 mg Simvastatin (Zocor) 20 mg PO HS [facility] PRN Reason: Protocol Stop: 06/19/17 20:59 Last Admin: 05/02/17 20:28 Dose: 20 mg Zolpidem Tartrate (Ambien) 5 mg PO HS PRN PRN Reason: Insomnia Stop: 06/18/17 23:12 Last Admin: 04/24/17 21:37 Dose: 5 mg General: No acute distress HEENT: Atraumatic Neck: Supple Cardiovascular: Regular rate, Normal S1 Lungs: Clear to auscultation Abdomen: Bowel sounds Assessment/Plan - Problem List Patient Problems: All Active Problems HTN (hypertension) (Acute) I10 Hyperlipidemia (Acute) E78.5 Osteoarthritis (Acute) M19.90 Schizophrenia (Acute) F20.9 - Plan Plan: as per psych will monitor as problems arise Nutritional Asmnt/Malnutr-PDOC - Dietary Evaluation Malnutrition Findings (Please click <Entered> for more info): Nutritional Asmnt/Malnutrition Start: 04/26/17 14: 45 Text: Status: Complete Freq: Document 04/26/17 16:55 ALBIN (Rec: 04/26/17 17:04 ALBIN [email or web address]) Nutritional Asmnt/Malnutrition Patient General Information Nutritional Screening Low Risk
--- NOTE | 2017-05-03 20:48 | Discharge Summary ---
DATE OF DISCHARGE: 05/03/2017 DATE OF DISCHARGE: 05/03/2017. JUSTIFICATION FOR HOSPITALIZATION: Disorganized psychotic grandiose. HISTORY OF PRESENT ILLNESS: A 71-year-old male with diagnosis of schizophrenia delusions. States he lives in [place], [place]. States he has a psychiatrist, nonsensical on exam, disorganized, unable to give me a clear and realistic plan for safety and basic food, clothing, and nursing home. Past psychiatric admissions in the past. SOCIAL HISTORY: Noted. MEDICATIONS: Reviewed. MENTAL STATUS EXAMINATION: Please see full psych eval for details. PROVISIONAL DIAGNOSIS: Schizophrenia, poor medication and treatment compliance. MEDICAL DIAGNOSIS: Please see full H and P. HOSPITAL COURSE: After initial assessment, the patient restarted back on medications including simvastatin and Zyprexa. Over the course of the hospitalization, his mood improved, affect improved, getting along well with staff and peers. Also put on low dose Klonopin as well as Lexapro. As the hospitalization progressed, he was not agitated. He was more engaged, no longer talking about living in [place] and accepting a placement. No agitation noted and was approaching his baseline. CONDITION UPON DISCHARGE: Improved. MENTAL STATUS: Fair attention and ADLs. Fair eye contact. Mood clinically "okay." Affect flat. Thought processes were more engaged, no SI, no HI, no intent, no plan. The patient is still talking about being a psychiatrist, but this likely is a fixed delusion. No voices. No overt paranoia. Insight and judgment better. PROVISIONAL DIAGNOSIS: Schizophrenia. Under medical, please see full H and P. DISCHARGE PLAN: He will be discharged to a facility confirmed by social work. PROGNOSIS: The patient follows up with outpatient mental health services and remains treatment compliant. Prognosis will improve, otherwise guarded. [facility]# [id number]
--- NOTE | 2017-05-04 08:25 | General Progress Note ---
Subjective - Review of Systems Events since last encounter: still confused in no acute distress Objective - Results Recent Labs: Laboratory Last Values POC Glucose 327 MG/DL (70 - 105) H 05/03/17 15:53 - Physical Exam Vitals and I&O: Vital Signs Temp 97.8 F 05/04/17 06:08 Pulse 69 05/04/17 06:08 Resp 20 05/04/17 06:08 BP 115/66 05/04/17 06:08 Pulse Ox 98 05/04/17 06:08 Intake & Output 05/03/17 05/04/17 05/04/17 18:59 06:59 18:59 Intake Total 1200 120 Balance 1200 120 Intake: Oral 1200 120 Other: # Voids 4 3 # Bowel Movements 1 Stool Characteristics Formed Active Medications: Current Medications Acetaminophen (Tylenol) 650 mg PO Q4HR PRN PRN Reason: Mild Pain / Temp above 100 Stop: 06/18/17 23:12 Amlodipine Besylate (Norvasc) 5 mg PO QAM [facility] Stop: 06/19/17 08:59 Last Admin: 05/03/17 09:00 Dose: 5 mg Clonazepam (Klonopin) 1 mg PO BID [facility] Stop: 06/21/17 08:59 Last Admin: 05/03/17 16:24 Dose: 1 mg Escitalopram Oxalate (Lexapro) 20 mg PO QAM [facility] PRN Reason: Protocol Stop: 06/19/17 08:59 Last Admin: 05/03/17 08:56 Dose: 20 mg Fenofibrate (Tricor) 134 mg PO DAILY [facility] Stop: 06/20/17 08:59 Last Admin: 05/03/17 08:57 Dose: 134 mg Fluticasone Propionate (Flonase) 2 spr NS DAILY [facility] Stop: 06/19/17 08:59 Last Admin: 05/03/17 08:56 Dose: 2 spr Lactobacillus Rhamnosus (Culturelle 15b) 1 each PO DAILY [facility] Stop: 06/20/17 08:59 Last Admin: 05/03/17 08:56 Dose: 1 each Lamotrigine (Lamictal) 150 mg PO QPM [facility] Stop: 06/19/17 16:59 Last Admin: 05/03/17 16:23 Dose: 150 mg Lorazepam (Ativan) 0.5 mg PO Q4HR PRN; Protocol PRN Reason: Anxiety Stop: 05/19/17 23:12 Miscellaneous (Probiotic Screen) 1 ea [facility] PRN PRN PRN Reason: PROTOCOL Stop: 06/19/17 09:59 Multivitamins/Vitamin C (Theragran) 1 tab PO DAILY [facility] Stop: 06/19/17 08:59 Last Admin: 05/03/17 08:57 Dose: 1 tab Olanzapine (Zyprexa Zydis) 10 mg SL QAM [facility] PRN Reason: Protocol Stop: 06/21/17 13:10 Last Admin: 05/03/17 08:56 Dose: 10 mg Olanzapine (Zyprexa) 20 mg PO HS [facility] PRN Reason: Protocol Stop: 06/25/17 20:59 Last Admin: 05/03/17 21:32 Dose: 20 mg Oxybutynin Chloride (Ditropan) 5 mg PO BID [facility] Stop: 06/19/17 08:59 Last Admin: 05/03/17 16:24 Dose: 5 mg Pantoprazole Sodium (Protonix) 40 mg PO DAILY [facility] Stop: 06/19/17 08:59 Last Admin: 05/03/17 08:57 Dose: 40 mg Simvastatin (Zocor) 20 mg PO HS [facility] PRN Reason: Protocol Stop: 06/19/17 20:59 Last Admin: 05/03/17 21:33 Dose: 20 mg Zolpidem Tartrate (Ambien) 5 mg PO HS PRN PRN Reason: Insomnia Stop: 06/18/17 23:12 Last Admin: 04/24/17 21:37 Dose: 5 mg General: No acute distress HEENT: Atraumatic Neck: Supple Cardiovascular: Regular rate, Normal S1 Lungs: Clear to auscultation Abdomen: Bowel sounds Assessment/Plan - Problem List Patient Problems: All Active Problems Schizophrenia (Acute) F20.9 Osteoarthritis (Acute) M19.90 Hyperlipidemia (Acute) E78.5 HTN (hypertension) (Acute) I10 - Plan Plan: as per psych will monitor as problems arise Nutritional Asmnt/Malnutr-PDOC - Dietary Evaluation Malnutrition Findings (Please click <Entered> for more info): Nutritional Asmnt/Malnutrition Start: 04/26/17 14: 45 Text: Status: Complete Freq: Document 04/26/17 16:55 LCHENG (Rec: 04/26/17 17:04 LCHENG [email or web address]) Nutritional Asmnt/Malnutrition Patient General Information Nutritional Screening Low Risk
[2017-05-04] MEDS: OLANZapine 10 mg Oral Disintegrating Tab SL SCH (08:44)
[2017-05-04] MEDS: Pantoprazole 40 mg EC Tab PO SCH (08:44)
[2017-05-04] MEDS: Fenofibrate, Micronized 134 mg Cap PO SCH (08:44)
[2017-05-04] MEDS: Multivitamin Tab PO SCH (08:44)
[2017-05-04] MEDS: Lactobacillus Rhamnosus GG 15 Billion CFU CAP.SPRINK PO SCH (08:44)
[2017-05-04] MEDS: Fluticasone Propionate 0.05mg/Actuation 16gm Nasal Spray NS SCH (11:41)
--- NOTE | 2017-05-06 00:53 | Progress Notes ---
DATE: 05/04/2017 SUBJECTIVE: Chart reviewed. The patient interviewed. Also discussed the patient's condition with the staff and reviewed records and labs. This is Dr. Cooper covering for Dr. Negrete. The patient is withdrawn and he is guarded. The patient is calm and cooperative. Dr. Negrete discharged the patient yesterday, but it is not clear to me why the patient did not leave yesterday and he is still in the hospital. Supposedly things are ready for the patient to be discharged. ASSESSMENT: The patient is calm and no change in his mental status exam from yesterday. TREATMENT PLAN: We will try to discharge the patient today on 05/04 to be followed up there. JOB# [id number]
== END 2017-05-04 11:20 | DRG 885 ==
LOC: GERO 22:32
PROVIDERS: ADMIT Psychiatry & Neurology Psychiatry; ATTEND Psychiatry & Neurology Psychiatry
DX: F20.9 Schizophrenia, unspecified (principal); E66.9 Obesity, unspecified; E78.5 Hyperlipidemia, unspecified; F17.210 Nicotine dependence, cigarettes, uncomplicated; M19.90 Unspecified osteoarthritis, unspecified site; I10 Essential (primary) hypertension; Z68.22 Body mass index [BMI] 22.0-22.9, adult
CPT/HCPCS: 82948-90; G0410; J7051; Z7610

== ENCOUNTER 2018-05-24 18:17 | Inpatient (IN) | payer MEDICARE, MEDICAID ==
--- NOTE | 2018-05-24 19:01 | ED Physician Chart ---
ED Chief Complaint/HPI - Patient Information Date Seen:: 05/24/18 Time Seen:: 18:45 Chief Complaint:: fever History of Present Illness:: Patient's had a fever up to 99.6 for the last 2-3 days. No recent cough, vomiting, diarrhea, abdominal pain, dysuria. Denies skin lesions. Blood on the lower lip is apparently from biting down on a hard biscuit at lunch. Allergies:: Allergies Allergy/AdvReac Type Severity Reaction Status Date / Time No Known Allergies Allergy Verified 04/19/17 23:04 Vitals:: Vital Signs - 8 hr 05/24/18 18:32 Temp 98.7 F HR 76 RR 16 BP 153/82 O2 Sat % 96 Historian:: Patient Review:: Nurse's Note Reviewed ED Review of Systems - Review of Systems General/Constitutional: Fever Skin: No skin lesions, No rash, No bruising Head: No headache, No light-headedness Eyes: No loss of vision, No pain, No diplopia ENT: No earache, No nasal drainage, No sore throat, No tinnitus Neck: No neck pain, No swelling, No thyromegaly, No stiffness, No mass noted Cardio Vascular: No chest pain, No palpitations, No PND, No orthopnea, No edema Pulmonary: No SOB, No cough, No sputum, No wheezing GI: No nausea, No vomiting, No diarrhea, No pain, No melena, No hematochezia, No constipation, No hematemesis G/U: No dysuria, No frequency, No hematuria Musculoskeletal: No bone or joint pain, No back pain, No muscle pain Endocrine: No polyuria, No polydipsia Psychiatric: No prior psych history, No depression, No anxiety, No suicidal ideation Hematopoietic: No bruising, No lymphadenopathy Allergic/Immuno: No urticaria, No angioedema Neurological: No syncope, No focal symptoms, No weakness, No paresthesia, No headache, No seizure, No dizziness, No confusion, No vertigo ED Past Medical History - Past Medical History Past Medical History: HTN, Dyslipidemia, PUD/GERD, Other (schizophrenia; depression; hyperlipidemia; that is post-CVA) Family History: None Social History: Non Smoker, No Alcohol Surgical History: None Psychiatricy History: Depression, Schizophrenia Medication: Reviewed Family Medical History - Family Member Father History Unknown: Yes ED Physical Exam - Physical Examination General/Constitutional: Awake, Well-developed, well-nourished, Alert, No distress Other Gen/Cons comments:: Patient is alert and oriented to the correct date Head: Atraumatic Eyes: Lids, conjuctiva normal, PERRL Skin: Nl inspection, No rash, No skin lesions, No ecchymosis ENMT: External ears, nose nl, Nasal exam nl, Oropharynx nl, Tonsils nl Other ENMT comments:: Left cerumen ecchymosis; edentulous; slight blood lower lip; no active bleeding Neck: No nuchal rigidity Respiratory: Nl effort/Exclusion, Clear to Auscultation, No Wheeze/Rhonchi/Rales Cardio Vascular: RRR, No murmur, gallop, rubs, NL S1 S2 GI: No tenderness/rebounding/guarding, No organomegaly, No hernia, Normal BS's, Nondistended, No mass/bruits, No McBurney tenderness Extremities: Normal digits & nails Neuro/Psych: No focal deficits ED Labs/Radiology/EKG Results - Lab Results Results: Laboratory Results WBC 5.0 Th/cmm (4.8-10.8) 05/24/18 19:00 RBC 5.05 Mil/cmm (3.80-5.80) 05/24/18 19:00 Hgb 14.3 gm/dL (12-16) 05/24/18 19:00 Hct 43.3 % (41.0-60) 05/24/18 19:00 MCV 85.8 fl (80-99) 05/24/18 19:00 MCH 28.3 pg (27.0-31.0) 05/24/18 19:00 MCHC Differential 33.0 pg (28.0-36.0) 05/24/18 19:00 RDW 13.8 % (11.5-20.0) 05/24/18 19:00 Plt Count 205 Th/cmm (150-400) 05/24/18 19:00 MPV 7.9 fl 05/24/18 19:00 Neutrophils % 43.5 % (40.0-80.0) 05/24/18 19:00 Lymphocytes % 36.1 % (20.0-50.0) 05/24/18 19:00 Monocytes % 9.8 % (2.0-10.0) 05/24/18 19:00 Eosinophils % 9.8 % (0.0-5.0) H 05/24/18 19:00 Basophils % 0.8 % (0.0-2.0) 05/24/18 19:00 Sodium 145 mEq/L (136-145) 05/24/18 19:00 Potassium 4.1 mEq/L (3.5-5.1) 05/24/18 19:00 Chloride 110 mEq/L (98-107) H 05/24/18 19:00 Carbon Dioxide 26.5 mEq/L (21.0-31.0) 05/24/18 19:00 Anion Gap 12.6 (7.0-16.0) 05/24/18 19:00 BUN 26 mg/dL (7-25) H 05/24/18 19:00 Creatinine 2.2 mg/dL (0.7-1.3) H 05/24/18 19:00 Est GFR ( Amer) TNP 05/24/18 19:00 Est GFR (Non-Af Amer) TNP 05/24/18 19:00 BUN/Creatinine Ratio 11.8 05/24/18 19:00 Glucose 137 mg/dL (70-105) H 05/24/18 19:00 Calcium 9.0 mg/dL (8.6-10.3) 05/24/18 19:00 Influenza A (Rapid) NEG FOR INF A 05/24/18 19:05 Influenza B (Rapid) NEG FOR INF B 05/24/18 19:05 Laboratory Results WBC 5.0 Th/cmm (4.8-10.8) 05/24/18 19:00 RBC 5.05 Mil/cmm (3.80-5.80) 05/24/18 19:00 Hgb 14.3 gm/dL (12-16) 05/24/18 19:00 Hct 43.3 % (41.0-60) 05/24/18 19:00 MCV 85.8 fl (80-99) 05/24/18 19:00 MCH 28.3 pg (27.0-31.0) 05/24/18 19:00 MCHC Differential 33.0 pg (28.0-36.0) 05/24/18 19:00 RDW 13.8 % (11.5-20.0) 05/24/18 19:00 Plt Count 205 Th/cmm (150-400) 05/24/18 19:00 MPV 7.9 fl 05/24/18 19:00 Neutrophils % 43.5 % (40.0-80.0) 05/24/18 19:00 Lymphocytes % 36.1 % (20.0-50.0) 05/24/18 19:00 Monocytes % 9.8 % (2.0-10.0) 05/24/18 19:00 Eosinophils % 9.8 % (0.0-5.0) H 05/24/18 19:00 Basophils % 0.8 % (0.0-2.0) 05/24/18 19:00 Sodium 145 mEq/L (136-145) 05/24/18 19:00 Potassium 4.1 mEq/L (3.5-5.1) 05/24/18 19:00 Chloride 110 mEq/L (98-107) H 05/24/18 19:00 Carbon Dioxide 26.5 mEq/L (21.0-31.0) 05/24/18 19:00 Anion Gap 12.6 (7.0-16.0) 05/24/18 19:00 BUN 26 mg/dL (7-25) H 05/24/18 19:00 Creatinine 2.2 mg/dL (0.7-1.3) H 05/24/18 19:00 Est GFR ( Amer) TNP 05/24/18 19:00 Est GFR (Non-Af Amer) TNP 05/24/18 19:00 BUN/Creatinine Ratio 11.8 05/24/18 19:00 Glucose 137 mg/dL (70-105) H 05/24/18 19:00 Calcium 9.0 mg/dL (8.6-10.3) 05/24/18 19:00 Urine Source MIDSTREAM 05/24/18 20:07 Urine Color YELLOW 05/24/18 20:07 Urine Clarity CLEAR (CLEAR) 05/24/18 20:07 Urine pH 7.0 (4.6 - 8.0) 05/24/18 20:07 Ur Specific [place] <= 1.005 (1.005-1.030) 05/24/18 20:07 Urine Protein NEGATIVE mg/dL (NEGATIVE) 05/24/18 20:07 Urine Glucose (UA) NEGATIVE mg/dL (NEGATIVE) 05/24/18 20:07 Urine Ketones NEGATIVE mg/dL (NEGATIVE) 05/24/18 20:07 Urine Blood NEGATIVE (NEGATIVE) 05/24/18 20:07 Urine Nitrate NEGATIVE (NEGATIVE) 05/24/18 20:07 Urine Bilirubin NEGATIVE (NEGATIVE) 05/24/18 20:07 Urine Urobilinogen 0.2 E.U./dL (0.2 - 1.0) 05/24/18 20:07 Ur Leukocyte Esterase NEGATIVE (NEGATIVE) 05/24/18 20:07 Urine RBC NONE SEEN /hpf (0-5) 05/24/18 20:07 Urine WBC 0-2 /hpf (0-5) 05/24/18 20:07 Ur Epithelial Cells NONE SEEN /lpf (FEW) 05/24/18 20:07 Urine Bacteria FEW /hpf (NONE SEEN) 05/24/18 20:07 Influenza A (Rapid) NEG FOR INF A 05/24/18 19:05 Influenza B (Rapid) NEG FOR INF B 05/24/18 19:05 ED Assessment - Assessment General Assessment: Spoke to Dr. Robertson who wants to admit the patient to observation ED Septic Shock - . Is Septic Shock (SBP<90, OR Lactate>4 mmol\L) present?: No - <6hrs of presentation: Vital Signs: Vital Signs - 8 hr 05/24/18 18:32 Temp 98.7 F HR 76 RR 16 BP 153/82 O2 Sat % 96 ED Reassessment (Disposition) - Reassessment Reassessment Condition:: Unchanged - Diagnosis Diagnosis:: Acute febrile illness; acute viral syndrome; mild renal insufficiency - Patient Disposition Admitted to:: Med/Surg Spoke to:: Cole Robertson Admitting Medical Physician:: Cole Robertson Condition at Disposition:: Stable, Unchanged
[2018-05-24 19:14] LABS: % BASOPHILS 0.8 % (0.0-2.0); % EOSINOPHILS 9.8 % (0.0-5.0); % LYMPHOCYTES 36.1 % (20.0-50.0); % MONOCYTES 9.8 % (2.0-10.0); % NEUTROPHILS 43.5 % (40.0-80.0); EOSINOPHILE ABSOLUTE 0.5 Th/cmm (0.1-0.4); HEMATOCRIT 43.3 % (41.0-60); HEMOGLOBIN 14.3 gm/dL (12-16); LYMPHOCYTE ABSOLUTE 1.8 Th/cmm (1.5-3.0); MEAN CELL VOLUME 85.8 fl (80-99); MEAN CORPUSCULAR HEMOGLOBIN 28.3 pg (27.0-31.0); MEAN PLATELET VOLUME 7.9 fl; MONOCYTE ABSOLUTE 0.5 Th/cmm (0.3-1.0); NEUTROPHILE ABSOLUTE 2.2 Th/cmm (1.8-8.0); PLATELET COUNT 205 Th/cmm (150-400); RED BLOOD COUNT 5.05 Mil/cmm (3.80-5.80); RED CELL DISTRIBUTION WIDTH 13.8 % (11.5-20.0)
[2018-05-24 19:28] LABS: ANION GAP 12.6 (7.0-16.0); BUN - UREA NITROGEN 26 mg/dL (7-25); CARBON DIOXIDE 26.5 mEq/L (21.0-31.0); CHLORIDE 110 mEq/L (98-107); CREATININE - SERUM 2.2 mg/dL (0.7-1.3); GLUCOSE 137 mg/dL (70-105); POTASSIUM SERUM 4.1 mEq/L (3.5-5.1); SODIUM SERUM 145 mEq/L (136-145)
[2018-05-24 20:00] LABS: INF A SCREEN NEG FOR INF A; INF B SCREEN NEG FOR INF B
[2018-05-24 20:12] LABS: URINE SOURCE MIDSTREAM
[2018-05-24 20:14] LABS: URINE BILIRUBIN NEGATIVE (NEGATIVE); URINE BLOOD NEGATIVE (NEGATIVE); URINE GLUCOSE (UA) NEGATIVE (NEGATIVE); URINE KETONE NEGATIVE (NEGATIVE); URINE LEUKOCYTE ESTERASE NEGATIVE (NEGATIVE); URINE NITRATE NEGATIVE (NEGATIVE); URINE PROTEIN NEGATIVE (NEGATIVE); URINE UROBILINOGEN 0.2 E.U./dL (0.2 - 1.0)
[2018-05-24 20:19] LABS: URINE CLARITY CLEAR (CLEAR); URINE COLOR YELLOW; URINE MICROSCOPIC INDICATED? YES; URINE RBC NONE SEEN /hpf (0-5)
[2018-05-24 20:20] LABS: URINE BACTERIA FEW /hpf (NONE SEEN); URINE EPITHELIAL CELLS NONE SEEN /lpf (FEW); URINE WBC 0-2 /hpf (0-5)
[2018-05-25 00:03] VITALS: BP 152/53
[2018-05-25 05:50] LABS: % BASOPHILS 0.8 % (0.0-2.0); % EOSINOPHILS 10.9 % (0.0-5.0); % LYMPHOCYTES 32.6 % (20.0-50.0); % MONOCYTES 11.3 % (2.0-10.0); % NEUTROPHILS 44.4 % (40.0-80.0); BASOPHILE ABSOLUTE 0.1 Th/cumm (0-0.2); EOSINOPHILE ABSOLUTE 0.7 Th/cmm (0.1-0.4); LYMPHOCYTE ABSOLUTE 2.1 Th/cmm (1.5-3.0); MEAN CELL VOLUME 85.3 fl (80-99); MEAN CORPUSCULAR HEMOGLOBIN 28.4 pg (27.0-31.0); MEAN CORPUSCULAR HGB CONC 33.3 pg (28.0-36.0); MEAN PLATELET VOLUME 8.1 fl; MONOCYTE ABSOLUTE 0.7 Th/cmm (0.3-1.0); NEUTROPHILE ABSOLUTE 2.7 Th/cmm (1.8-8.0); PLATELET COUNT 218 Th/cmm (150-400); RED BLOOD COUNT 5.27 Mil/cmm (3.80-5.80); RED CELL DISTRIBUTION WIDTH 13.7 % (11.5-20.0); WHITE BLOOD COUNT 6.3 Th/cmm (4.8-10.8)
[2018-05-25 06:05] LABS: ANION GAP 10.6 (7.0-16.0); BUN - UREA NITROGEN 23 mg/dL (7-25); CARBON DIOXIDE 26.3 mEq/L (21.0-31.0); CHLORIDE 111 mEq/L (98-107); GLUCOSE 91 mg/dL (70-105); POTASSIUM SERUM 3.9 mEq/L (3.5-5.1); SODIUM SERUM 144 mEq/L (136-145)
[2018-05-25] MEDS ORDERED: Levofloxacin 500mg/100mL 500 MG/100 ML BAG IV ONE (07:30)
--- NOTE | 2018-05-25 09:37 | Diagnostic Imaging Report ---
Portable chest x-ray History: Fever, shortness of breath Allowing for portable technique the heart size is normal. No focal pulmonary parenchymal processes. No hilar or mediastinal abnormalities. Impression: No acute abnormalities.
[2018-05-25] MEDS ORDERED: Acetaminophen 500 MG TAB PO PRN (10:14)
[2018-05-25 12:11] LABS: URINE SOURCE MIDSTREAM
[2018-05-25 12:13] LABS: URINE BILIRUBIN NEGATIVE (NEGATIVE); URINE BLOOD NEGATIVE (NEGATIVE); URINE GLUCOSE (UA) NEGATIVE (NEGATIVE); URINE KETONE NEGATIVE (NEGATIVE); URINE LEUKOCYTE ESTERASE NEGATIVE (NEGATIVE); URINE NITRATE NEGATIVE (NEGATIVE); URINE PROTEIN NEGATIVE (NEGATIVE); URINE UROBILINOGEN 0.2 E.U./dL (0.2 - 1.0)
[2018-05-25 12:25] LABS: URINE CLARITY CLEAR (CLEAR); URINE COLOR YELLOW; URINE MICROSCOPIC INDICATED? NO
[2018-05-25] MEDS ORDERED: VTE Chemical Prophylaxis Screen/Admission MC PRN (12:38)
--- NOTE | 2018-05-25 13:17 | History and Physical ---
History of Present Illness - HPI Chief Complaint: Patient was admitted to [facility] due to complaints of fever 2-3 days and mild shortness of breath. HPI: Erasmo Robertson MD History and Physical Exam Jesus Alberto Dow : 1945 Admit date: 05/24/2018. Date: 05/25/2018. Chief complaint Patient was admitted to [facility] due to complaints of fever 2-3 days and mild shortness of breath. Present illness 72 y/o male patient was recently admitted to [facility] on May 24, 2018 due to complaints of fever 2-3 days and mild shortness of breath. Patient has history of Hypertension, Dyslipidemia, PUD/Gerd, Schizophrenia, Depression, Hyperlipidemia and S/p CVA. Patient had an ER consult with Dr Mora and a complete workup was done. Patient was treated and monitored. Patient had a chest x-ray done which showed no abnormalities. I will follow patient and he will continue present care management. Review of systems Vitals: Reviewed. General: Normotensive, in no acute distress. Head: Normocephalic, no lesions. Eyes: PERRLA, EOM'S full, conjunctive clear, fundi grossly normal. Neck: Supple, no masses, no thyromegaly, no bruits. Lungs: Bilateral breath sounds, No Rhonchi or wheezing noted. Heart: RR, no murmurs, no rubs, no gallops. Abdomen: Soft, no tenderness, no masses, BS normal. Musculoskeletal: General Weakness, Hx of CVA. Psych: Hx of Schizophrenia and Depression. Skin: Slight blood of lower lip, no active bleeding. Neurological: Denies headache and loss of consciousness. Past medical history Hypertension, Dyslipidemia, PUD/Gerd, Schizophrenia, Depression, Hyperlipidemia and S/p CVA. Past surgical history None per patient. Medications Please refer to medication reconciliation sheet. Allergies No known drug allergies. Family history Noncontributory. Social history Nonsmoker, No Alcohol use, No drug abuse. Physical Exam- HEENT: Head is normocephalic, atraumatic. NECK: Supple. No JVD. No carotid bruit. CHEST: Bilateral breath sounds. No crackles. No wheezing. HEART: S1, S2 within normal limits. Regular rhythm. No murmur. No gallop. ABDOMEN: soft, non-tender, non-distended. Bowel sounds present. EXTREMITIES: General Muscle Weakness, Hx of CVA. NEUROLOGIC: Alert oriented x 3. Assessment and Impression Left Cerumen Ecchymosis. Edentulous. Acute Febrile Illness. Acute Viral Syndrome. Mild Renal Insufficiency. Hypertension. Dyslipidemia. PUD. Gerd. Schizophrenia. Depression. Hyperlipidemia. S/p CVA. Plan Continuation of care. Monitor Labs, Chest x-ray. Continue present meds as directed. Monitor vitals, continue B/P meds. Monitor Diet/Nutritional support. Monitor mental status progression. Monitor behavioral health status. Physical therapy. Occupational therapy. Fall precaution, frequent nursing rounds, and as needed restraints to prevent fall. Safety precaution. Supportive care. Continue collaborating with consulting specialists, case management and nursing team. Will Monitor patient and continue current treatment plan as ordered. Vital Signs: Last Vital Signs Temp 97.3 F 05/25/18 11:44 Pulse 74 05/25/18 12:47 Resp 18 05/25/18 11:44 BP 134/74 05/25/18 12:47 Pulse Ox 94 05/25/18 11:44 Past Medical History Cardiovascular: Report: No Pertinent Hx Pulmonary: Report: No Pertinent Hx [employer] SUPERVISOR: Report: No Pertinent Hx GI: Report: GERD, Peptic Ulcer Psych: Report: Depression, Schizophrenia Musculoskeletal: Report: Other (History of CVA.) Rheumatologic: Report: No pertinent Hx Infectious Disease: Report: No Pertinent Hx Renal/: Report: Other (Mild Renal Insufficiency.) Endocrine: Report: No Pertinent Hx Dermatology: Report: No Pertinent Hx - Past Surgical History Past Surgical History: No pertinent Hx Family Medical History - Family Member Father History Unknown: Yes Social History Smoke: No Alcohol: None Drugs: None Lives: Detention Domestic Violence: Negative Health Maintenance Health Maintenance: Other (unknown) - Medications Home Medications: Home Medication Medication Instructions Recorded Type Rivaroxaban [Xarelto] 15 mg PO DAILY 04/20/17 History Acetaminophen [Tylenol] 650 mg PO Q4HR PRN tab 05/03/17 Rx Escitalopram Oxalate [Lexapro] 20 mg PO QAM tab 05/03/17 Rx Fenofibrate, Micronized [Tricor] 134 mg PO DAILY cap 05/03/17 Rx Lactobacillus Rhamnosus GG 15B 1 each PO DAILY cap.sprink 01/31/18 Rx [Culturelle 15B] Multivitamin [Theragran] 1 tab PO DAILY tab 05/03/17 Rx OLANZapine ODT [ZyPREXA ZYDIS] 10 mg SL QAM odt 05/03/17 Rx OLANZapine [ZyPREXA] 20 mg PO HS tab 05/03/17 Rx Oxybutynin Chloride [Ditropan*] 5 mg PO BID tab 05/03/17 Rx Pantoprazole [Protonix] 40 mg PO DAILY ect 05/03/17 Rx amLODIPine Besylate [Norvasc] 5 mg PO QAM tab 05/03/17 Rx lamoTRIgine [laMICtal] 150 mg PO QPM tab 05/03/17 Rx Acetaminophen [Tylenol Extra 500 mg PO Q4HR PRN 05/24/18 History Strength] Docusate Sodium [Colace] 100 mg PO DAILY 05/24/18 History Escitalopram Oxalate [Lexapro] 1 tab PO DAILY 05/24/18 History - Allergies Allergies/Adverse Reactions: Allergies Allergy/AdvReac Type Severity Reaction Status Date / Time No Known Allergies Allergy Verified 04/19/17 23:04 Review of Systems - Review of Systems Constitutional: Report: Weakness Eyes: Report: No Significant ENT: Report: Other (Left Cerumen ecchymosis.) Respiratory: Report: No Significant Cardiovascular: Report: No Significant Gastrointestinal: Report: Other (gerd.) Musculoskeletal: Report: Other (Hx of CVA.) Neurological: Report: No Significant Physical Exam - Physical Exam HEENT: Report: Ears Nose Throat within normal limits Neck: Report: Within normal limits Cardiovascular Systems: Report: Regular, Rate and Rhythm Respiratory: Report: Breath Sounds are within normal limits, Other (pt c/o of mild sob.) Abdomen: Report: Non-tender to palpation Back: Report: Inspection of back is within normal limits. Extremities: Report: Non-tender to palpation. Skin: Report: Other (Slight blood on lower lip, patient stated he bit his lip when biting down on a hard biscuit.) Neuro/Psych: Report: Depressed affect - Lab Results All Lab Results last 24 hours: Laboratory Results - last 24 hr 05/24/18 05/24/18 05/24/18 19:00 19:00 19:05 WBC 5.0 RBC 5.05 Hgb 14.3 Hct 43.3 MCV 85.8 MCH 28.3 MCHC Differential 33.0 RDW 13.8 Plt Count 205 MPV 7.9 Neutrophils % 43.5 Lymphocytes % 36.1 Monocytes % 9.8 Eosinophils % 9.8 H Basophils % 0.8 Sodium 145 Potassium 4.1 Chloride 110 H Carbon Dioxide 26.5 Anion Gap 12.6 BUN 26 H Creatinine 2.2 H Est GFR ( Amer) TNP Est GFR (Non-Af Amer) TNP BUN/Creatinine Ratio 11.8 Glucose 137 H Calcium 9.0 Urine Source Urine Color Urine Clarity Urine pH Ur Specific [place] Urine Protein Urine Glucose (UA) Urine Ketones Urine Blood Urine Nitrate Urine Bilirubin Urine Urobilinogen Ur Leukocyte Esterase Urine RBC Urine WBC Ur Epithelial Cells Urine Bacteria Influenza A (Rapid) NEG FOR INF A Influenza B (Rapid) NEG FOR INF B 05/24/18 05/25/18 05/25/18 20:07 05:00 05:00 WBC 6.3 RBC 5.27 Hgb 15.0 Hct 45.0 MCV 85.3 MCH 28.4 MCHC Differential 33.3 RDW 13.7 Plt Count 218 MPV 8.1 Neutrophils % 44.4 Lymphocytes % 32.6 Monocytes % 11.3 H Eosinophils % 10.9 H Basophils % 0.8 Sodium 144 Potassium 3.9 Chloride 111 H Carbon Dioxide 26.3 Anion Gap 10.6 BUN 23 Creatinine 2.0 H Est GFR ( Amer) TNP Est GFR (Non-Af Amer) TNP BUN/Creatinine Ratio 11.5 Glucose 91 Calcium 9.0 Urine Source MIDSTREAM Urine Color YELLOW Urine Clarity CLEAR Urine pH 7.0 Ur Specific [place] <= 1.005 Urine Protein NEGATIVE Urine Glucose (UA) NEGATIVE Urine Ketones NEGATIVE Urine Blood NEGATIVE Urine Nitrate NEGATIVE Urine Bilirubin NEGATIVE Urine Urobilinogen 0.2 Ur Leukocyte Esterase NEGATIVE Urine RBC NONE SEEN Urine WBC 0-2 Ur Epithelial Cells NONE SEEN Urine Bacteria FEW Influenza A (Rapid) Influenza B (Rapid) 05/25/18 11:50 WBC RBC Hgb Hct MCV MCH MCHC Differential RDW Plt Count MPV Neutrophils % Lymphocytes % Monocytes % Eosinophils % Basophils % Sodium Potassium Chloride Carbon Dioxide Anion Gap BUN Creatinine Est GFR ( Amer) Est GFR (Non-Af Amer) BUN/Creatinine Ratio Glucose Calcium Urine Source MIDSTREAM Urine Color YELLOW Urine Clarity CLEAR Urine pH 7.0 Ur Specific [place] 1.010 Urine Protein NEGATIVE Urine Glucose (UA) NEGATIVE Urine Ketones NEGATIVE Urine Blood NEGATIVE Urine Nitrate NEGATIVE Urine Bilirubin NEGATIVE Urine Urobilinogen 0.2 Ur Leukocyte Esterase NEGATIVE Urine RBC Urine WBC Ur Epithelial Cells Urine Bacteria Influenza A (Rapid) Influenza B (Rapid) - Assessment Assessment: Assessment and Impression Left Cerumen Ecchymosis. Edentulous. Acute Febrile Illness. Acute Viral Syndrome. Mild Renal Insufficiency. Hypertension. Dyslipidemia. PUD. Gerd. Schizophrenia. Depression. Hyperlipidemia. S/p CVA. - Plan Plan: Plan Continuation of care. Monitor Labs, Chest x-ray. Continue present meds as directed. Monitor vitals, continue B/P meds. Monitor Diet/Nutritional support. Monitor mental status progression. Monitor behavioral health status. Physical therapy. Occupational therapy. Fall precaution, frequent nursing rounds, and as needed restraints to prevent fall. Safety precaution. Supportive care. Continue collaborating with consulting specialists, case management and nursing team. Will Monitor patient and continue current treatment plan as ordered.
[2018-05-25] MEDS ORDERED: Probiotic Screen MC PRN (13:53)
--- NOTE | 2018-05-26 01:47 | Consultation ---
DATE OF CONSULTATION: 05/25/2018 I am covering for Dr. Cooper. IDENTIFYING INFORMATION: The patient is a 72-year-old male. REASON FOR CONSULTATION: The patient was admitted because of fever with history of hypertension, peptic ulcer disease, GERD, schizophrenia, and depression. The patient also has history of CVA. The patient is a poor historian. He denies that he has any psychiatric condition. He denies that he is hearing voices or seeing things. He denies any intent to harm self or anybody. He did not know where he was. He could not tell me the day. He is not sure why he is here. He was able, however, to tell me the exact date. He reports that he sleeps well, he eats well. He denies any current intent to harm himself or anybody. Denies auditory or visual hallucinations or paranoia. He was able to tell me the president being Erika and that Obama was before him. The patient is with history of depression, anxiety, and schizophrenia that he could not verify. The patient, however, probably is having early dementia, as he does not know if he has any psychiatric condition. PAST PSYCHIATRIC HISTORY: Depression and schizophrenia according to the record, though the patient could not verify. I cannot see that he is on any antipsychotic medication or any antidepressant. MEDICAL HISTORY: As per Dr. Robertson. The patient had fever and UTI infection. The patient believes he has some sort of bacteria, but he is not able to tell me what kind of bacteria. He has a history of CVA. He has dysuria and abdominal pain. ALLERGIES: He has no known drug allergy. FAMILY AND SOCIAL HISTORY: The patient reported that he is single, never , no children. He has bachelor in science and he used to work as an radio frequency engineer. He denies family psychotic disorder. MENTAL STATUS EXAMINATION: The patient is appropriately dressed, not well groomed. He was in bed. He did not know why he is here. He knows that he has some bacteria somewhere. He was unable to tell me exact details of why he has been placed and does not actually where he is, though he was able to tell me the date. He denies any current intent to harm himself or anyone. Denies auditory or visual hallucinations. Denies any intent to harm anyone. Long-term memory is good with regards to his age, date of . He knows the president being [place] before him; however, he does not know why he is here, so his recent memory is poor. He does not know the situation that led to his admission. His insight about his illness is poor. He does not realize he has problems. Judgment is poor. IMPRESSION: Mood disorder, not otherwise specified; versus psychosis, not otherwise specified; versus schizoaffective disorder. RECOMMENDATIONS: We will watch the patient. I do not recommend to give any medication, as he may start acting out or not sleeping or not eating. The patient needs follow up with a psychiatrist upon discharge. Thank you very much for allowing me to participate in the care of this most interesting gentleman. JOB# [id number]
--- NOTE | 2018-05-26 07:03 | Consultation ---
DATE OF CONSULTATION: 05/25/2018 INFECTIOUS DISEASE CONSULTATION REFERRING PHYSICIAN: Dr. Robertson. REASON FOR CONSULTATION: Fevers. Unknown etiology. HISTORY OF PRESENT ILLNESS: The patient is a 72-year-old male with a past medical history of hypertension, dyslipidemia, peptic ulcer disease, GERD, schizophrenia, depression, hyperlipidemia, and a history of CVA, admitted to [facility] for on and off fevers, intermittent fevers for the last 3 days with mild shortness of breath. On initial evaluation, the patient's temperature was 98.1 degrees Fahrenheit and WBC count was 5000. Influenza screen was negative. Urinalysis was negative. Chest x-ray also showed no active disease. Blood cultures are pending. Empirically, the patient was started on Levaquin. ID consult was called for the antibiotic management. PAST MEDICAL HISTORY: Includes hypertension, dyslipidemia, peptic ulcer disease, GERD, schizophrenia, depression, hyperlipidemia and history of CVA. PAST SURGICAL HISTORY: Unknown. ALLERGIES: NKDA MEDICATIONS: As per medication reconciliation sheet. Antibiotic jaeger, the patient was started on Levaquin. FAMILY HISTORY: Noncontributory. SOCIAL HISTORY: The patient lives in nursing facility. No history of smoking, alcohol or drug use. REVIEW OF SYSTEMS: GENERAL: The patient has intermittent fevers for the last 3 days as per the history, but no fevers during his hospitalization. HEENT: No diplopia, no photophobia, no sore throat. RESPIRATORY: No cough, no shortness of breath. CARDIOVASCULAR: No chest pain or palpitation. GASTROINTESTINAL: No nausea, no vomiting, no diarrhea, no constipation. GENITOURINARY: No dysuria, no hematuria. NEUROLOGIC: No headache, no dizziness, no focal weakness. PHYSICAL EXAMINATION: CURRENT VITAL SIGNS: Shows temperature is 97.3 degrees Fahrenheit, pulse 74, respiration is 18, and blood pressure 134/74, oxygen saturation 94%. GENERAL: The patient is comfortable, lying in the bed, not in acute distress. HEENT: Head is normocephalic, atraumatic. Oral cavity moist, pink tongue. NECK: Supple, no JVD, no carotid bruit. Trachea in midline. CHEST: Bilateral breath sounds. No crackles or wheezing. HEART: S1, S2 within normal limits. Regular rhythm. No murmur or gallop. ABDOMEN: Soft, nontender, nondistended. Bowel sounds present. EXTREMITIES: No cyanosis, no clubbing, no edema. NEUROLOGIC: Alert, awake, oriented x 3. No focal weakness. LABORATORY DATA: Lab jaeger, current lab shows WBC count is 6300, hemoglobin 15, hematocrit 45, platelets are 280,000, neutrophil is 44.4%. Sodium is 143, potassium 3.9, chloride 111, bicarbonate is 26.3, BUN is 23, creatinine 2.0 and glucose is 81. Urinalysis is negative nitrite, negative leukoesterase. Influenza A and B screen is negative. Chest x-ray was also noncontributory. IMPRESSION: 1. Fever of unknown origin. Monitor the fever. Meanwhile, continue empirical Levaquin. 2. Schizophrenia. 3. Hypertension. 4. Depression. 5. Hyperlipidemia. 6. History of cerebrovascular accident. RECOMMENDATIONS: Continue Levaquin at this time. Check the blood cultures. Thank you, Dr. Robertson for involving me in taking care of this patient. JOB# [id number]
[2018-05-26] MEDS ORDERED: Pantoprazole 40 mg EC Tab PO SCH (07:30)
[2018-05-26] MEDS ORDERED: Fenofibrate, Micronized 134 mg Cap PO SCH (09:00)
[2018-05-26] MEDS ORDERED: Levofloxacin 250mg/50mL 250 MG/50 ML BAG IV SCH (09:00)
[2018-05-26] MEDS ORDERED: Lactobacillus Rhamnosus GG 15 Billion CFU CAP.SPRINK PO SCH (09:00)
[2018-05-26] MEDS ORDERED: Multivitamin Tab PO SCH (09:00)
== END 2018-05-25 22:28 | DRG 866 ==
LOC: ER 18:17 → MSI 21:26
PROVIDERS: ADMIT Internal Medicine; ATTEND Internal Medicine
DX: B34.9 Viral infection, unspecified (principal); I10 Essential (primary) hypertension; E78.5 Hyperlipidemia, unspecified; K21.9 Gastro-esophageal reflux disease without esophagitis; F32.9 Major depressive disorder, single episode, unspecified; N28.9 Disorder of kidney and ureter, unspecified; K27.9 Peptic ulcer, site unspecified, unspecified as acute or chronic, without hemorrhage or perforation; F39 Unspecified mood [affective] disorder; R58 Hemorrhage, not elsewhere classified; F20.9 Schizophrenia, unspecified; Z86.73 Personal history of transient ischemic attack (TIA), and cerebral infarction without residual deficits
CPT/HCPCS: 36415-UA; 71045-TC; 80048-TC; 81001-TC; 81003-TC; 85025-TC; 87086-90; 87804-TC; J1644; J1956

== ENCOUNTER 2019-09-05 14:44 | Inpatient (IN) | payer MEDICARE, MEDICAID ==
[2019-09-05 22:42] VITALS: BP 140/72
[2019-09-05] MEDS ORDERED: Acetaminophen 500 MG TAB PO PRN (23:46)
[2019-09-05] MEDS ORDERED: Magnesium Hydroxide (MOM) 30 mL UDC PO PRN (23:58)
[2019-09-05] MEDS ORDERED: Maalox 30 mL Cup PO PRN (23:58)
[2019-09-06] MEDS ORDERED: Pantoprazole 40 mg EC Tab PO SCH (09:00)
[2019-09-06] MEDS: Fenofibrate, Micronized 134 mg Cap PO SCH (09:01)
--- NOTE | 2019-09-06 11:19 | Psychiatric Evaluation ---
DATE OF SERVICE: 09/06/2019 HISTORY OF PRESENT ILLNESS: A 74-year-old male transferred from [place]. The patient with increased agitation, yelling and confusion, medication refusals, history of chronic kidney disease, overactive bladder, seizure, on [id number] he is not talking to me at all, staring blankly, not answering any questions. He is awake, alert, but not answering any questions whatsoever. Per staff, he is actually AO x 3. Focused on smoking. PAST PSYCHIATRIC HISTORY: Noted. He has been to this hospital in the past, history of schizophrenia. MEDICAL: Please see full H and as noted. MEDICATIONS: Noted including Zyprexa. SOCIAL HISTORY: The patient coming from a f[facility] [place]. Beyond this, I am not sure if he has any social support. The patient is a smoker. MENTAL STATUS EXAMINATION: Unkempt, fair eye contact, wearing a hat, staring blankly, not answering any questions, seems heavily internally preoccupied. Poor insight. DIAGNOSIS: Schizophrenia. ESTIMATED LENGTH OF STAY: 7-10 days. ASSESSMENT: The patient requiring hospitalization, agitated, aggressive, psychoses. PLAN: We will restart medications. Treatment plan includes group as well as milieu therapy. CONDITIONS FOR DISCHARGE: Improved mood, improved affect, better control of any psychotic symptoms, aggression, agitation. JOB# [id number]
[2019-09-06] MEDS: OLANZapine 10 mg Oral Disintegrating Tab PO SCH (11:52)
[2019-09-07] MEDS: Pantoprazole 40 mg EC Tab PO SCH (06:34)
[2019-09-07] MEDS: OLANZapine 10 mg Oral Disintegrating Tab PO SCH (08:20)
[2019-09-07] MEDS: Fenofibrate, Micronized 134 mg Cap PO SCH (08:20)
--- NOTE | 2019-09-07 12:44 | History & Physical ---
ADMIT DATE: 09/07/2019 CHIEF COMPLAINT: Agitation. HISTORY OF PRESENT ILLNESS: This is a 74-year-old male who was originally living in a long term facility, who was sent out for evaluation due to increase in agitation and aggressive behavior towards the staff. The patient was medically cleared from the Emergency Room. Hence, the patient was transferred to [facility] for further psychiatric management. REVIEW OF SYSTEMS: GENERAL: This is a 74-year-old male. No fever, no weakness. HEAD: No headache. No dizziness. EYES: No eye pain, no blurring of vision. NECK: No neck pain or nuchal rigidity. CHEST: No chest pain or palpitation. PULMONARY: No coughing. No shortness of breath. GASTROINTESTINAL: No abdominal pain, no constipation, no diarrhea. MUSCULOSKELETAL: No joint pain. No muscle pain. SOCIAL HISTORY: The patient lives in a long term facility prior to hospitalization. FAMILY HISTORY: Unremarkable. SURGICAL HISTORY: Unremarkable. PAST MEDICAL HISTORY: Includes seizure, chronic kidney disease, overactive bladder, osteoarthritis, hypertension, anemia. PSYCHIATRIC HISTORY: Includes psychosis. PHYSICAL EXAMINATION: GENERAL: This is a 74-year-old male that appears as stated in no acute distress. HEAD: Atraumatic and normocephalic. EYES: Bilateral conjunctivae are clear. Bilateral pupils are equally round and reactive. NECK: Supple. No JVD. CARDIOVASCULAR: S1 and S2, without murmur. PULMONARY: Clear to auscultation. GASTROINTESTINAL: Soft and nontender without guarding. Positive bowel sounds. MUSCULOSKELETAL: No clubbing. No cyanosis noted. ASSESSMENT: 1. Psychosis. 2. Hypertension. 3. Overactive bladder. 4. Osteoarthritis. 5. Anemia. PLAN: We will admit the patient to Psychiatric Unit. We will do medication reconciliation accordingly. We will put the patient on fall precautions. We will follow up with a psychiatrist to monitor the patient's condition and behavior. Treatment plans were discussed with the patient's nurse. Treatment plans were discussed with Dr. Robertson. JOB# [id number]
--- NOTE | 2019-09-07 15:56 | Progress Notes ---
DATE: 09/07/[address] Negrete. IDENTIFYING DATA: A 74-year-old male with a history of schizoaffective disorder, depressive type. Today on [id number] evaluation, the patient continues to derail, disorganized, limited historian. MENTAL STATUS EXAMINATION: Depressed, withdrawn, irritable, agitated, derails secondary to the voices. ASSESSMENT AND PLAN: Schizoaffective disorder, depressive type. We will continue with Janet and Anderson. [facility]# [id number]
[2019-09-08] MEDS: Pantoprazole 40 mg EC Tab PO SCH (06:54)
[2019-09-08] MEDS: OLANZapine 10 mg Oral Disintegrating Tab PO SCH (09:17)
[2019-09-08] MEDS: Fenofibrate, Micronized 134 mg Cap PO SCH (09:17)
--- NOTE | 2019-09-08 16:01 | Progress Notes ---
DATE: 09/08/2019 Today on [id number] evaluation, the patient is slightly more redirectable, needing mild redirection. MENTAL STATUS EXAMINATION: Irritable, anxious. ASSESSMENT AND PLAN: Schizoaffective, depressive type ____ redirection. We will continue Janet and Anderson. JOB# [id number]
[2019-09-09] MEDS: Pantoprazole 40 mg EC Tab PO SCH (06:58)
[2019-09-09] MEDS: OLANZapine 10 mg Oral Disintegrating Tab PO SCH (08:37)
[2019-09-09] MEDS: Fenofibrate, Micronized 134 mg Cap PO SCH (08:37)
--- NOTE | 2019-09-09 12:54 | Progress Notes ---
DATE: 09/09/2019 SUBJECTIVE: The patient is currently in the hospital. He is a 74-year-old male seen today 09/09/2019, increased agitation, yelling and confusion. Medication refusals. The patient just staring blankly, not answering any questions, hard to fully assess, asking him questions for some time. He is not answering me at all. Staff noting he is AO x 2, periods of confusion, social withdrawal. Slept about 8 hours, ongoing concerns for safety, very impulsive, unpredictable, poor historian as noted. Medications reviewed. Labs reviewed. Vitals were reviewed. Tolerant of treatment thus far. No overt side effects. Currently on dosing of Zyprexa. ASSESSMENT: A 74-year-old male, unruly, impulsive, stares blankly, not talking to me whatsoever. PLAN: We will continue inpatient monitoring. Continue dosing of medications, ongoing symptoms, safety concerns, concerns mostly for the safety of those around him. JOB# [id number]
[2019-09-10] MEDS: Pantoprazole 40 mg EC Tab PO SCH (06:43)
[2019-09-10] MEDS: Fenofibrate, Micronized 134 mg Cap PO SCH (08:24)
[2019-09-10] MEDS: OLANZapine 10 mg Oral Disintegrating Tab PO SCH (08:24)
--- NOTE | 2019-09-10 14:30 | Progress Notes ---
DATE: 09/10/2019 SUBJECTIVE: A 74-year-old male, currently in the hospital, not talking to me whatsoever, withdrawn, quiet, isolative. Staff noting he is pretty unpredictable. He has actually never spoken to me for the entirety of how long he has been here. Apparently answering some questions from the staff. The patient is sleeping okay. Slept about 5 hours last night, mostly withdrawn, depressed. Minimal disclosure, guarded. Very limited historian, seems highly internally preoccupied. MEDICATIONS: Reviewed. Labs reviewed. Vitals were reviewed. ASSESSMENT: A 74-year-old male, currently in the hospital, ongoing behavioral disturbances, bizarre symptoms, very quiet, withdrawn, selectively mute. PLAN: We will continue inpatient monitoring. JOB# [id number]
[2019-09-11] MEDS: Pantoprazole 40 mg EC Tab PO SCH (06:40)
[2019-09-11] MEDS: Fenofibrate, Micronized 134 mg Cap PO SCH (08:37)
[2019-09-11] MEDS: OLANZapine 10 mg Oral Disintegrating Tab PO SCH (08:37)
--- NOTE | 2019-09-11 23:25 | Progress Notes ---
DATE: 09/11/2019 SUBJECTIVE: This is a 74-year-old male transferred from [place] with increased agitation, yelling, confusion and refusal of medications. When I go see him, he is eating, does not talk to me at all, just stares blankly, per staff, selective at times with staff interaction, periods of confusion, feeding himself, no overt agitation right now. Staff noting he is mostly withdrawn, keeps to self. He will talk to staff, just states "okay," answering some questions. He is taking his medications, unpredictable, guarded, suspicious of others certainly. Medications reviewed. Labs reviewed. Vitals reviewed. ASSESSMENT: A 74-year-old male, still odd, bizarre, withdrawn, impulsive, but generally calmer. PLAN: We will continue inpatient monitoring, concerns for safety, mostly for the safety of others, still impulsive, attempted to speak with him, difficult [id number], discussed with staff at length. [facility]# [id number]
[2019-09-12] MEDS: Pantoprazole 40 mg EC Tab PO SCH (06:35)
[2019-09-12] MEDS: OLANZapine 10 mg Oral Disintegrating Tab PO SCH (08:31)
[2019-09-12] MEDS: Fenofibrate, Micronized 134 mg Cap PO SCH (08:31)
--- NOTE | 2019-09-12 11:37 | Internal Medicine Prog Note ---
Internal Medicine Subjective - Subjective Service Date: 09/12/19 Patient seen and examined:: with staff Patient is:: awake Per staff patient has:: tolerating meds Internal Medicine Objective - Physical Exam Vitals and I&O: Vital Signs Temp 98.1 F 09/12/19 06:31 Pulse 80 09/12/19 08:31 Resp 20 09/12/19 07:35 BP 141/80 09/12/19 08:31 Pulse Ox 92 09/12/19 06:31 Intake & Output 09/11/19 09/12/19 09/12/19 18:59 06:59 18:59 Intake Total 650 120 Balance 650 120 Intake: Oral 650 120 Other: # Voids 2 Active Medications: Current Medications Acetaminophen (Tylenol) 650 mg PO Q4HR PRN PRN Reason: Mild Pain / Temp above 100 Stop: 11/04/19 23:45 Acetaminophen (Tylenol Extra Strength) 1,000 mg PO Q4HR PRN PRN Reason: moderate pain (4-6) Stop: 11/04/19 23:45 Al Hydrox/Mg Hydrox/Simethicone (Maalox) 30 ml PO Q6H PRN PRN Reason: Dyspepsia Stop: 11/04/19 23:57 Amlodipine Besylate (Norvasc) 5 mg PO QAM [facility] Stop: 11/05/19 08:59 Last Admin: 09/12/19 08:31 Dose: 5 mg Escitalopram Oxalate (Lexapro) 20 mg PO QAM [facility]; Protocol Stop: 11/05/19 10:59 Last Admin: 09/12/19 08:31 Dose: 20 mg Fenofibrate (Tricor) 134 mg PO DAILY [facility] Stop: 11/05/19 08:59 Last Admin: 09/12/19 08:31 Dose: 134 mg Lamotrigine (Lamictal) 150 mg PO HS [facility]; Protocol Stop: 11/05/19 20:59 Last Admin: 09/11/19 20:59 Dose: 150 mg Lorazepam (Ativan) 0.5 mg PO Q4H PRN; Protocol PRN Reason: Anxiety/Agitation Stop: 11/04/19 23:57 Magnesium Hydroxide (Milk Of Magnesia) 30 ml PO HS PRN PRN Reason: Constipation Stop: 11/04/19 23:57 Olanzapine (Zyprexa) 20 mg PO HS [facility]; Protocol Stop: 11/05/19 20:59 Last Admin: 09/11/19 21:00 Dose: 20 mg Olanzapine (Zyprexa Zydis) 10 mg PO QAM [facility]; Protocol Stop: 11/05/19 10:59 Last Admin: 09/12/19 08:31 Dose: 10 mg Oxybutynin Chloride (Ditropan) 5 mg PO BID [facility] Stop: 11/05/19 08:59 Last Admin: 09/12/19 08:31 Dose: 5 mg Pantoprazole Sodium (Protonix) 40 mg PO QDAC [facility] Stop: 11/06/19 07:29 Last Admin: 09/12/19 06:35 Dose: 40 mg Rivaroxaban (Xarelto) 15 mg PO DAILY@1700 [facility] Stop: 11/05/19 16:59 Last Admin: 09/11/19 16:45 Dose: 15 mg Zolpidem Tartrate (Ambien) 5 mg PO HS PRN PRN Reason: Insomnia Stop: 11/04/19 23:57 Last Admin: 09/06/19 20:30 Dose: 5 mg General: alert HEENT: NC/AT, PERRLA Neck: Supple Lungs: CTAB Cardiovascular: RRR, Normal S1, Normal S2, without murmur Abdomen: soft, non-tender, non-distended, positive bowel sound Neurological: alert Internal Medicine Assmt/Plan - Assessment Assessment: psychosis htn overactive bladder oa anemia - Plan Plan: fall precautions range of motion with nursing staff continue current plan of care Nutritional Asmnt/Malnutr-PDOC - Dietary Evaluation Malnutrition Findings (Please click <Entered> for more info): Nutritional Asmnt/Malnutrition Start: 09/07/19 09: 22 Text: Status: Complete Freq: Protocol: Document 09/07/19 09:22 DEYANIRA (Rec: 09/07/19 09:37 MMINOCENCIA RUSSELL- [id number]) Nutritional Asmnt/Malnutrition Patient General Information Nutritional Screening Moderate Risk Diagnosis Psychosis Pertinent Medical Hx/Surgical Hx Chronic kidney disease, overactive bladder, seizure, hypertension, hyperlipidemia, GERD, cerebral infarction, schizophrenia, major depressive disorder, anxiety. Subjective Information Patient was admitted from [facility]. Tolerating current diet with adequate intake to meet nutrient needs. Current Diet Order/ Nutrition Support Cardiac, chopped, no added sodium Patient / S.O Not Indicated Pertinent Medications maalox, MOM, protonix Nutritional Hx/Data Height 6 ft 1 in Height (Calculated Centimeters) 185.4 Current Weight (lbs) 185 lb Weight (Calculated Kilograms) 83.9 Weight (Calculated Grams) 75265.6 [place] Body Weight 184 % [place] Body Weight 100 Body Mass Index (BMI) 24.4 Recent Weight Change No Weight Status Approriate GI Symptoms GI Symptoms None Last BM none noted Difficult in: None Food Allergies No Cultural/Ethnic/Sabianist Belief none indicated Usual diet at home SOFT DIET, NICHOLAS, LOW CHOLESTEROL, LOW FAT Skin Integrity/Comment: Bruises, Lambert 21 Current %PO Good (75-100%) Estimated Nutritional Goals BEE in Kcals: Using Current wt Calories/Kcals/Kg CBW 84kg 25-30 kcal/kg Kcals Calculated ~6050-8607 kcal/day Protein: Using Current wt Protein g/kgm/kg Protein Calculated ~85gm/day Fluid: ml ~2100-2500ml/day Nutritional Problem No current Nutrition Prob Problem No nutrition diagnosis at this time Intervention/Recommendation Comments 1. Coninue current diet as tolerated by patient. Expected Outcomes/Goals Expected Outcomes/Goals oral intake >75% of meals, weight stable, nutrition related labs WNL F/U LR 09/13
--- NOTE | 2019-09-12 15:46 | Progress Notes ---
DATE: 09/12/2019 SUBJECTIVE: The patient in the hospital, remains odd, bizarre, asking if there is something wrong, paranoid, asking about a Green marker in my pocket, "is something wrong," suspicious of others. Withdrawn, keeps to self, selectively mute, not really making much sense on exam. Slept about 4 hours. No behaviors right now in regards to any agitation and looking suspicious, redirectable. Medications reviewed. Labs reviewed. Vitals were reviewed. Blood pressure 134/74, pulse of 77. ASSESSMENT: A 74-year-old male, currently in the hospital, ongoing behaviors. Selectively mute, internally preoccupied. PLAN: We will continue inpatient monitoring. JOB# [id number]
[2019-09-13] MEDS: Pantoprazole 40 mg EC Tab PO SCH (06:39)
[2019-09-13] MEDS: OLANZapine 10 mg Oral Disintegrating Tab PO SCH (08:27)
[2019-09-13] MEDS: Fenofibrate, Micronized 134 mg Cap PO SCH (08:28)
--- NOTE | 2019-09-13 13:42 | Internal Medicine Prog Note ---
Internal Medicine Subjective - Subjective Service Date: 09/13/19 Patient is:: awake Per staff patient has:: tolerating meds Internal Medicine Objective - Physical Exam Vitals and I&O: Vital Signs Temp 97.9 F 09/13/19 06:25 Pulse 95 09/13/19 08:28 Resp 17 09/13/19 08:00 BP 120/65 09/13/19 08:28 Pulse Ox 93 09/13/19 06:25 Intake & Output 09/12/19 09/13/19 09/13/19 18:59 06:59 18:59 Intake Total 1000 240 Balance 1000 240 Intake: Oral 1000 240 Other: # Voids 4 2 # Bowel Movements 1 0 Active Medications: Current Medications Acetaminophen (Tylenol) 650 mg PO Q4HR PRN PRN Reason: Mild Pain / Temp above 100 Stop: 11/04/19 23:45 Acetaminophen (Tylenol Extra Strength) 1,000 mg PO Q4HR PRN PRN Reason: moderate pain (4-6) Stop: 11/04/19 23:45 Al Hydrox/Mg Hydrox/Simethicone (Maalox) 30 ml PO Q6H PRN PRN Reason: Dyspepsia Stop: 11/04/19 23:57 Amlodipine Besylate (Norvasc) 5 mg PO QAM [facility] Stop: 11/05/19 08:59 Last Admin: 09/13/19 08:28 Dose: 5 mg Escitalopram Oxalate (Lexapro) 20 mg PO QAM [facility]; Protocol Stop: 11/05/19 10:59 Last Admin: 09/13/19 08:28 Dose: 20 mg Fenofibrate (Tricor) 134 mg PO DAILY [facility] Stop: 11/05/19 08:59 Last Admin: 09/13/19 08:28 Dose: 134 mg Lamotrigine (Lamictal) 150 mg PO HS [facility]; Protocol Stop: 11/05/19 20:59 Last Admin: 09/12/19 20:59 Dose: 150 mg Lorazepam (Ativan) 0.5 mg PO Q4H PRN; Protocol PRN Reason: Anxiety/Agitation Stop: 11/04/19 23:57 Magnesium Hydroxide (Milk Of Magnesia) 30 ml PO HS PRN PRN Reason: Constipation Stop: 11/04/19 23:57 Olanzapine (Zyprexa) 20 mg PO HS [facility]; Protocol Stop: 11/05/19 20:59 Last Admin: 09/12/19 20:59 Dose: 20 mg Olanzapine (Zyprexa Zydis) 10 mg PO QAM [facility]; Protocol Stop: 11/05/19 10:59 Last Admin: 09/13/19 08:27 Dose: 10 mg Oxybutynin Chloride (Ditropan) 5 mg PO BID [facility] Stop: 11/05/19 08:59 Last Admin: 09/13/19 08:27 Dose: 5 mg Pantoprazole Sodium (Protonix) 40 mg PO QDAC [facility] Stop: 11/06/19 07:29 Last Admin: 09/13/19 06:39 Dose: 40 mg Rivaroxaban (Xarelto) 15 mg PO DAILY@1700 [facility] Stop: 11/05/19 16:59 Last Admin: 09/12/19 16:27 Dose: 15 mg Zolpidem Tartrate (Ambien) 5 mg PO HS PRN PRN Reason: Insomnia Stop: 11/04/19 23:57 Last Admin: 09/12/19 20:59 Dose: 5 mg General: alert HEENT: NC/AT, PERRLA Neck: Supple Lungs: CTAB Cardiovascular: RRR, Normal S1, Normal S2, without murmur Abdomen: soft, non-tender, non-distended, positive bowel sound Neurological: alert Internal Medicine Assmt/Plan - Assessment Assessment: psychosis htn overactive bladder oa anemia - Plan Plan: fall precautions range of motion with nursing staff continue current plan of care Nutritional Asmnt/Malnutr-PDOC - Dietary Evaluation Malnutrition Findings (Please click <Entered> for more info): Nutritional Asmnt/Malnutrition Start: 09/07/19 09: 22 Text: Status: Complete Freq: Protocol: Document 09/07/19 09:22 DEYANIRA (Rec: 09/07/19 09:37 MMULROSANGELA RUSSELL- [id number]) Nutritional Asmnt/Malnutrition Patient General Information Nutritional Screening Moderate Risk Diagnosis Psychosis Pertinent Medical Hx/Surgical Hx Chronic kidney disease, overactive bladder, seizure, hypertension, hyperlipidemia, GERD, cerebral infarction, schizophrenia, major depressive disorder, anxiety. Subjective Information Patient was admitted from [facility]. Tolerating current diet with adequate intake to meet nutrient needs. Current Diet Order/ Nutrition Support Cardiac, chopped, no added sodium Patient / S.O Not Indicated Pertinent Medications maalox, MOM, protonix Nutritional Hx/Data Height 6 ft 1 in Height (Calculated Centimeters) 185.4 Current Weight (lbs) 185 lb Weight (Calculated Kilograms) 83.9 Weight (Calculated Grams) 50712.6 [place] Body Weight 184 % [place] Body Weight 100 Body Mass Index (BMI) 24.4 Recent Weight Change No Weight Status Approriate GI Symptoms GI Symptoms None Last BM none noted Difficult in: None Food Allergies No Cultural/Ethnic/Denominational Belief none indicated Usual diet at home SOFT DIET, NICHOLAS, LOW CHOLESTEROL, LOW FAT Skin Integrity/Comment: Bruises, Lambert 21 Current %PO Good (75-100%) Estimated Nutritional Goals BEE in Kcals: Using Current wt Calories/Kcals/Kg CBW 84kg 25-30 kcal/kg Kcals Calculated ~0108-9748 kcal/day Protein: Using Current wt Protein g/kgm/kg Protein Calculated ~85gm/day Fluid: ml ~2100-2500ml/day Nutritional Problem No current Nutrition Prob Problem No nutrition diagnosis at this time Intervention/Recommendation Comments 1. Coninue current diet as tolerated by patient. Expected Outcomes/Goals Expected Outcomes/Goals oral intake >75% of meals, weight stable, nutrition related labs WNL F/U LR 09/13
--- NOTE | 2019-09-13 22:49 | Progress Notes ---
DATE: 09/13/2019 SUBJECTIVE: This is a 74-year-old male in the hospital, remains odd, bizarre and generally preoccupied, mumbling to self, not making much sense when I talked to him. Slept about 6 hours, mostly focused on drinking ice water, ruminative, still depressed, down, sad, mostly looking at the ground, needing all prompting, redirection, somewhat impulsive, unpredictable. Per social service manager, the patient coming from [facility]. Medications were reviewed. Labs reviewed. Vitals were reviewed. ASSESSMENT: A 74-year-old male, difficult to control symptoms. Some time was spent with the patient trying to glean information from him, but proves fairly challenging. PLAN: We will continue inpatient monitoring, titrate and adjust medications. I did evaluate him for medication side effects, none noted. Dictation Ends Here. JOB# [id number]
[2019-09-14] MEDS: Pantoprazole 40 mg EC Tab PO SCH (06:34)
--- NOTE | 2019-09-14 06:47 | Progress Notes ---
DATE: 09/14/2019 SUBJECTIVE: This is a 74-year-old male transferred from [place], agitation and confusion. The patient is still bizarre on exam, still somewhat odd appearing, odd affect and demeanor, not really saying much, hard to interview in fact. Time was spent attempting to speak with the patient, but is pretty challenging given how confused and disoriented he is, just lot of times will stare blankly. Nursing staff noting he is withdrawn, mostly keeps to self, did not sleep much, episodes of laughing, talking to self, responding heavily to internal stimuli. Medications were reviewed. Labs reviewed. Vitals were reviewed. Blood pressure 120/65, pulse of 95. ASSESSMENT: The patient in the hospital, 74-year-old male, still symptomatic, bizarre, paranoid. Currently on dosing of Zyprexa 10 mg in the morning, 20 mg at nighttime. PLAN: We will continue inpatient monitoring. We will slowly titrate dosing of medications. Consider dose titration of Ambien at night. JOB# [id number]
[2019-09-14] MEDS: Fenofibrate, Micronized 134 mg Cap PO SCH (08:39)
[2019-09-14] MEDS: OLANZapine 10 mg Oral Disintegrating Tab PO SCH (08:39)
--- NOTE | 2019-09-14 09:53 | Internal Medicine Prog Note ---
Internal Medicine Subjective - Subjective Service Date: 09/14/19 Patient seen and examined:: without staff, chart reviewed Patient is:: awake, ambulating, talking, denies any new complaints Per staff patient has:: tolerating meds Internal Medicine Objective - Physical Exam Vitals and I&O: Vital Signs Temp 97.2 F 09/14/19 05:45 Pulse 89 09/14/19 08:39 Resp 17 09/14/19 08:00 BP 125/76 09/14/19 08:39 Pulse Ox 92 09/14/19 05:45 Intake & Output 09/13/19 09/14/19 09/14/19 18:59 06:59 18:59 Intake Total 1500 240 Balance 1500 240 Intake: Oral 1500 240 Other: # Voids 3 2 # Bowel Movements 0 Active Medications: Current Medications Acetaminophen (Tylenol) 650 mg PO Q4HR PRN PRN Reason: Mild Pain / Temp above 100 Stop: 11/04/19 23:45 Acetaminophen (Tylenol Extra Strength) 1,000 mg PO Q4HR PRN PRN Reason: moderate pain (4-6) Stop: 11/04/19 23:45 Al Hydrox/Mg Hydrox/Simethicone (Maalox) 30 ml PO Q6H PRN PRN Reason: Dyspepsia Stop: 11/04/19 23:57 Amlodipine Besylate (Norvasc) 5 mg PO QAM [facility] Stop: 11/05/19 08:59 Last Admin: 09/14/19 08:39 Dose: 5 mg Escitalopram Oxalate (Lexapro) 20 mg PO QAM [facility]; Protocol Stop: 11/05/19 10:59 Last Admin: 09/14/19 08:39 Dose: 20 mg Fenofibrate (Tricor) 134 mg PO DAILY [facility] Stop: 11/05/19 08:59 Last Admin: 09/14/19 08:39 Dose: 134 mg Lamotrigine (Lamictal) 150 mg PO HS [facility]; Protocol Stop: 11/05/19 20:59 Last Admin: 09/13/19 20:55 Dose: 150 mg Lorazepam (Ativan) 0.5 mg PO Q4H PRN; Protocol PRN Reason: Anxiety/Agitation Stop: 11/04/19 23:57 Magnesium Hydroxide (Milk Of Magnesia) 30 ml PO HS PRN PRN Reason: Constipation Stop: 11/04/19 23:57 Olanzapine (Zyprexa) 20 mg PO HS [facility]; Protocol Stop: 11/05/19 20:59 Last Admin: 09/13/19 20:56 Dose: 20 mg Olanzapine (Zyprexa Zydis) 10 mg PO QAM [facility]; Protocol Stop: 11/05/19 10:59 Last Admin: 09/14/19 08:39 Dose: 10 mg Oxybutynin Chloride (Ditropan) 5 mg PO BID [facility] Stop: 11/05/19 08:59 Last Admin: 09/14/19 08:39 Dose: 5 mg Pantoprazole Sodium (Protonix) 40 mg PO QDAC [facility] Stop: 11/06/19 07:29 Last Admin: 09/14/19 06:34 Dose: 40 mg Rivaroxaban (Xarelto) 15 mg PO DAILY@1700 [facility] Stop: 11/05/19 16:59 Last Admin: 09/13/19 16:34 Dose: 15 mg Zolpidem Tartrate (Ambien) 5 mg PO HS PRN PRN Reason: Insomnia Stop: 11/04/19 23:57 Last Admin: 09/13/19 20:56 Dose: 5 mg General: alert HEENT: NC/AT, PERRLA Neck: Supple Lungs: CTAB Cardiovascular: RRR, Normal S1, Normal S2, without murmur Abdomen: soft, non-tender, non-distended, positive bowel sound Extremities: clear Neurological: alert, disorganized Internal Medicine Assmt/Plan - Assessment Assessment: schizophrenia hypertension anemia overactive blasdder osteoarthritis - Plan Plan: fall precaution monitor behavior follow up with psychiatrist Nutritional Asmnt/Malnutr-PDOC - Dietary Evaluation Malnutrition Findings (Please click <Entered> for more info): Nutritional Asmnt/Malnutrition Start: 09/07/19 09: 22 Text: Status: Complete Freq: Protocol: Document 09/07/19 09:22 DEYANIRA (Rec: 09/07/19 09:37 DEYANIRA WELLS- [id number]) Nutritional Asmnt/Malnutrition Patient General Information Nutritional Screening Moderate Risk Diagnosis Psychosis Pertinent Medical Hx/Surgical Hx Chronic kidney disease, overactive bladder, seizure, hypertension, hyperlipidemia, GERD, cerebral infarction, schizophrenia, major depressive disorder, anxiety. Subjective Information Patient was admitted from [facility]. Tolerating current diet with adequate intake to meet nutrient needs. Current Diet Order/ Nutrition Support Cardiac, chopped, no added sodium Patient / S.O Not Indicated Pertinent Medications maalox, MOM, protonix Nutritional Hx/Data Height 6 ft 1 in Height (Calculated Centimeters) 185.4 Current Weight (lbs) 185 lb Weight (Calculated Kilograms) 83.9 Weight (Calculated Grams) 61604.6 [place] Body Weight 184 % [place] Body Weight 100 Body Mass Index (BMI) 24.4 Recent Weight Change No Weight Status Approriate GI Symptoms GI Symptoms None Last BM none noted Difficult in: None Food Allergies No Cultural/Ethnic/Mandaen Belief none indicated Usual diet at home SOFT DIET, NICHOLAS, LOW CHOLESTEROL, LOW FAT Skin Integrity/Comment: Bruises, Lambert 21 Current %PO Good (75-100%) Estimated Nutritional Goals BEE in Kcals: Using Current wt Calories/Kcals/Kg CBW 84kg 25-30 kcal/kg Kcals Calculated ~1269-2073 kcal/day Protein: Using Current wt Protein g/kgm/kg Protein Calculated ~85gm/day Fluid: ml ~2100-2500ml/day Nutritional Problem No current Nutrition Prob Problem No nutrition diagnosis at this time Intervention/Recommendation Comments 1. Coninue current diet as tolerated by patient. Expected Outcomes/Goals Expected Outcomes/Goals oral intake >75% of meals, weight stable, nutrition related labs WNL F/U LR 09/13
[2019-09-15] MEDS: Pantoprazole 40 mg EC Tab PO SCH (06:39)
[2019-09-15] MEDS: OLANZapine 10 mg Oral Disintegrating Tab PO SCH (08:47)
[2019-09-15] MEDS: Fenofibrate, Micronized 134 mg Cap PO SCH (08:47)
--- NOTE | 2019-09-15 18:15 | Progress Notes ---
DATE: 09/15/2019 Dr. Cooper covering for Dr. Negrete. SUBJECTIVE: Chart was reviewed and the patient interviewed. Also discussed the patient's condition with the staff and reviewed records and labs. The patient is still isolative and withdrawn. The patient during the interview was staying on the edge of his bed with his cowboy hat on his head. He still seems to be in a depressed mood. The patient also is mumbling and is having difficulty expressing himself or expressing his needs. He is still talking to himself and he is still in irritable mood and wants to be left alone. The patient also is still interacting minimally with others. ASSESSMENT: The patient is still severely depressed and is withdrawn. TREATMENT PLAN: Continue to monitor behavior and condition closely. Also, continue to work on his ineffective coping and his isolation. JOB# [id number]
--- NOTE | 2019-09-15 20:30 | Internal Medicine Prog Note ---
Internal Medicine Subjective - Subjective Patient is:: awake, ambulating, talking, denies any new complaints Per staff patient has:: tolerating meds Internal Medicine Objective - Physical Exam Vitals and I&O: Vital Signs Temp 97.2 F 09/15/19 15:08 Pulse 71 09/15/19 15:08 Resp 18 09/15/19 15:08 BP 103/63 09/15/19 15:08 Pulse Ox 95 09/15/19 15:08 Intake & Output 09/15/19 09/15/19 09/16/19 06:59 18:59 06:59 Intake Total 240 Balance 240 Intake: Oral 240 Other: # Voids 2 Active Medications: Current Medications Acetaminophen (Tylenol) 650 mg PO Q4HR PRN PRN Reason: Mild Pain / Temp above 100 Stop: 11/04/19 23:45 Acetaminophen (Tylenol Extra Strength) 1,000 mg PO Q4HR PRN PRN Reason: moderate pain (4-6) Stop: 11/04/19 23:45 Al Hydrox/Mg Hydrox/Simethicone (Maalox) 30 ml PO Q6H PRN PRN Reason: Dyspepsia Stop: 11/04/19 23:57 Amlodipine Besylate (Norvasc) 5 mg PO QAM [facility] Stop: 11/05/19 08:59 Last Admin: 09/15/19 08:48 Dose: Not Given Escitalopram Oxalate (Lexapro) 20 mg PO QAM [facility]; Protocol Stop: 11/05/19 10:59 Last Admin: 09/15/19 08:48 Dose: 20 mg Fenofibrate (Tricor) 134 mg PO DAILY [facility] Stop: 11/05/19 08:59 Last Admin: 09/15/19 08:47 Dose: 134 mg Lamotrigine (Lamictal) 150 mg PO HS [facility]; Protocol Stop: 11/05/19 20:59 Last Admin: 09/14/19 21:32 Dose: 150 mg Lorazepam (Ativan) 0.5 mg PO Q4H PRN; Protocol PRN Reason: Anxiety/Agitation Stop: 11/04/19 23:57 Magnesium Hydroxide (Milk Of Magnesia) 30 ml PO HS PRN PRN Reason: Constipation Stop: 11/04/19 23:57 Olanzapine (Zyprexa) 20 mg PO HS [facility]; Protocol Stop: 11/05/19 20:59 Last Admin: 09/14/19 21:31 Dose: 20 mg Olanzapine (Zyprexa Zydis) 10 mg PO QAM [facility]; Protocol Stop: 11/05/19 10:59 Last Admin: 09/15/19 08:47 Dose: 10 mg Oxybutynin Chloride (Ditropan) 5 mg PO BID [facility] Stop: 11/05/19 08:59 Last Admin: 09/15/19 17:05 Dose: 5 mg Pantoprazole Sodium (Protonix) 40 mg PO QDAC [facility] Stop: 11/06/19 07:29 Last Admin: 09/15/19 06:39 Dose: 40 mg Rivaroxaban (Xarelto) 15 mg PO DAILY@1700 [facility] Stop: 11/05/19 16:59 Last Admin: 09/15/19 17:05 Dose: 15 mg Zolpidem Tartrate (Ambien) 5 mg PO HS PRN PRN Reason: Insomnia Stop: 11/04/19 23:57 Last Admin: 09/13/19 20:56 Dose: 5 mg General: alert HEENT: NC/AT, PERRLA Neck: Supple Lungs: CTAB Cardiovascular: RRR, Normal S2 Abdomen: soft, non-tender, non-distended, positive bowel sound Extremities: clear Neurological: alert, disorganized Internal Medicine Assmt/Plan - Assessment Assessment: Schizophrenia Hypertension Anemia Overactive bladder Osteoarthritis - Plan Plan: Monitor Vitals Nutritional support Psychiatry managment Continue to monitor behavior Safety precautions. Dispo planning Nutritional Asmnt/Malnutr-PDOC - Dietary Evaluation Malnutrition Findings (Please click <Entered> for more info): Nutritional Asmnt/Malnutrition Start: 09/07/19 09: 22 Text: Status: Complete Freq: Protocol: Document 09/07/19 09:22 DEYANIRA (Rec: 09/07/19 09:37 MMULROSANGELA RUSSELL- [id number]) Nutritional Asmnt/Malnutrition Patient General Information Nutritional Screening Moderate Risk Diagnosis Psychosis Pertinent Medical Hx/Surgical Hx Chronic kidney disease, overactive bladder, seizure, hypertension, hyperlipidemia, GERD, cerebral infarction, schizophrenia, major depressive disorder, anxiety. Subjective Information Patient was admitted from [facility]. Tolerating current diet with adequate intake to meet nutrient needs. Current Diet Order/ Nutrition Support Cardiac, chopped, no added sodium Patient / S.O Not Indicated Pertinent Medications maalox, MOM, protonix Nutritional Hx/Data Height 6 ft 1 in Height (Calculated Centimeters) 185.4 Current Weight (lbs) 185 lb Weight (Calculated Kilograms) 83.9 Weight (Calculated Grams) 03131.6 [place] Body Weight 184 % [place] Body Weight 100 Body Mass Index (BMI) 24.4 Recent Weight Change No Weight Status Approriate GI Symptoms GI Symptoms None Last BM none noted Difficult in: None Food Allergies No Cultural/Ethnic/Nondenominational Belief none indicated Usual diet at home SOFT DIET, NICOHLAS, LOW CHOLESTEROL, LOW FAT Skin Integrity/Comment: Bruises, Lambert 21 Current %PO Good (75-100%) Estimated Nutritional Goals BEE in Kcals: Using Current wt Calories/Kcals/Kg CBW 84kg 25-30 kcal/kg Kcals Calculated ~3660-4181 kcal/day Protein: Using Current wt Protein g/kgm/kg Protein Calculated ~85gm/day Fluid: ml ~2100-2500ml/day Nutritional Problem No current Nutrition Prob Problem No nutrition diagnosis at this time Intervention/Recommendation Comments 1. Coninue current diet as tolerated by patient. Expected Outcomes/Goals Expected Outcomes/Goals oral intake >75% of meals, weight stable, nutrition related labs WNL F/U LR 09/13
[2019-09-16] MEDS: Pantoprazole 40 mg EC Tab PO SCH (06:44)
[2019-09-16] MEDS: Fenofibrate, Micronized 134 mg Cap PO SCH (08:10)
[2019-09-16] MEDS: OLANZapine 10 mg Oral Disintegrating Tab PO SCH (08:11)
--- NOTE | 2019-09-16 11:22 | Internal Medicine Prog Note ---
Internal Medicine Subjective - Subjective Service Date: 09/16/19 Patient seen and examined:: with staff, chart reviewed Patient is:: awake, ambulating, talking, denies any new complaints Patient Complaints of:: other (Seizure disorder.) Per staff patient has:: no episodes of fall, agitated, combative, tolerating meds, other (Severly depressed.) Internal Medicine Objective - Physical Exam Vitals and I&O: Vital Signs Temp 97.9 F 09/16/19 06:32 Pulse 76 09/16/19 08:27 Resp 19 09/16/19 06:32 BP 104/68 09/16/19 08:27 Pulse Ox 93 09/16/19 06:32 Intake & Output 09/15/19 09/16/19 09/16/19 18:59 06:59 18:59 Intake Total 120 Balance 120 Intake: Oral 120 Other: # Voids 1 # Bowel Movements 0 Active Medications: Current Medications Acetaminophen (Tylenol) 650 mg PO Q4HR PRN PRN Reason: Mild Pain / Temp above 100 Stop: 11/04/19 23:45 Acetaminophen (Tylenol Extra Strength) 1,000 mg PO Q4HR PRN PRN Reason: moderate pain (4-6) Stop: 11/04/19 23:45 Al Hydrox/Mg Hydrox/Simethicone (Maalox) 30 ml PO Q6H PRN PRN Reason: Dyspepsia Stop: 11/04/19 23:57 Amlodipine Besylate (Norvasc) 5 mg PO QAM ON LICENSE OF [facility] Stop: 11/05/19 08:59 Last Admin: 09/16/19 08:27 Dose: Not Given Escital[facility]ram [facility] ([facility]ro) [facility] [place]; Protocol Stop: 11/05/19 10:59 Last Admin: 09/16/19 08:10 Dose: 20 mg Fenofibrate (Tricor) 134 mg PO DAILY ON LICENSE OF [facility] Stop: 11/05/19 08:59 Last Admin: 09/16/19 08:10 Dose: 134 mg Lamotrigine (Lamictal) 150 mg PO HS ON LICENSE OF [facility]; Protocol Stop: 11/05/19 20:59 Last Admin: 09/15/19 21:00 Dose: 150 mg Lorazepam (Ativan) 0.5 mg PO Q4H PRN; Protocol PRN Reason: Anxiety/Agitation Stop: 11/04/19 23:57 Magnesium Hydroxide (Milk Of Magnesia) 30 ml PO HS PRN PRN Reason: Constipation Stop: 11/04/19 23:57 Olanzapine (Zyprexa) 20 mg PO HS ON LICENSE OF [facility]; Protocol Stop: 11/05/19 20:59 Last Admin: 09/15/19 21:00 Dose: 20 mg Olanzapine (Zyprexa Zydis) 10 mg PO QAM ON LICENSE OF [facility]; Protocol Stop: 11/05/19 10:59 Last Admin: 09/16/19 08:11 Dose: 10 mg Oxybutynin Chloride (Ditropan) 5 mg PO BID ON LICENSE OF [facility] Stop: 11/05/19 08:59 Last Admin: 09/16/19 08:27 Dose: 5 mg Pantoprazole Sodium (Protonix) 40 mg PO QDAC ON LICENSE OF [facility] Stop: 11/06/19 07:29 Last Admin: 09/16/19 06:44 Dose: 40 mg Rivaroxaban (Xarelto) 15 mg PO DAILY@1700 ON [facility] OF [facility] Stop: 11/05/19 16:59 Last Admin: 09/15/19 17:05 Dose: 15 mg Zolpidem Tartrate (Ambien) 5 mg PO HS PRN PRN Reason: Insomnia Stop: 11/04/19 23:57 Last Admin: 09/13/19 20:56 Dose: 5 mg Physical Exam: 74 y/o male patient has been withdrawn and in a depressed mood lately. General: weak, alert HEENT: NC/AT, PERRLA Neck: Supple Lungs: CTAB Cardiovascular: RRR, Normal S2 Abdomen: soft, non-tender, non-distended, positive bowel sound Extremities: clear Neurological: alert, disorganized Internal Medicine Assmt/Plan - Assessment Assessment: Major Depression. Schizophrenia. Hypertension. Hypertension. Anemia. Overactive bladder. Osteoarthritis. CKD. Psychosis. - Plan Plan: Monitor mental health status. Monitor diet and nutritional support. Continue present medications as directed Seizure and safety precaution Pain management. Continue current plan of care Nutritional Asmnt/Malnutr-PDOC - Dietary Evaluation Malnutrition Findings (Please click <Entered> for more info): Nutritional Asmnt/Malnutrition Start: 09/07/19 09: 22 Text: Status: Complete Freq: Protocol: Document 09/07/19 09:22 DEYANIRA (Rec: 09/07/19 09:37 MMINOCENCIA WELLS- [id number]) Nutritional Asmnt/Malnutrition Patient General Information Nutritional Screening Moderate Risk Diagnosis Psychosis Pertinent Medical Hx/Surgical Hx Chronic kidney disease, overactive bladder, seizure, hypertension, hyperlipidemia, GERD, cerebral infarction, schizophrenia, major depressive disorder, anxiety. Subjective Information Patient was admitted from [facility]. Tolerating current diet with adequate intake to meet nutrient needs. Current Diet Order/ Nutrition Support Cardiac, chopped, no added sodium Patient / S.O Not Indicated Pertinent Medications maalox, MOM, protonix Nutritional Hx/Data Height 1.85 m Height (Calculated Centimeters) 185.4 Current Weight (lbs) 83.915 kg Weight (Calculated Kilograms) 83.9 Weight (Calculated Grams) 10172.6 [place] Body Weight 184 % [place] Body Weight 100 Body Mass Index (BMI) 24.4 Recent Weight Change No Weight Status Approriate GI Symptoms GI Symptoms None Last BM none noted Difficult in: None Food Allergies No Cultural/Ethnic/Congregational Belief none indicated Usual diet at home SOFT DIET, NICHOLAS, LOW CHOLESTEROL, LOW FAT Skin Integrity/Comment: Bruises, Lambert 21 Current %PO Good (75-100%) Estimated Nutritional Goals BEE in Kcals: Using Current wt Calories/Kcals/Kg CBW 84kg 25-30 kcal/kg Kcals Calculated ~3768-7686 kcal/day Protein: Using Current wt Protein g/kgm/kg Protein Calculated ~85gm/day Fluid: ml ~2100-2500ml/day Nutritional Problem No current Nutrition Prob Problem No nutrition diagnosis at this time Intervention/Recommendation Comments 1. Coninue current diet as tolerated by patient. Expected Outcomes/Goals Expected Outcomes/Goals oral intake >75% of meals, weight stable, nutrition related labs WNL F/U LR 09/13
--- NOTE | 2019-09-16 17:15 | Progress Notes ---
DATE: 09/16/2019 SUBJECTIVE: A 74-year-old male, currently in the hospital, mostly stares blankly, just tells me his name is Brown. Mood "okay." Otherwise, does not say much. Impoverished thought processes. Fair sleep and appetite, mostly keeps to self. He does seem to be showing some signs of improvement. I spent extensive time with him attempting to interview him, but it was pretty challenging. He just does not say much back, stares blankly. The patient will need a COVID-19 testing prior to discharge. Per home health care social worker, it seems that placement has been confirmed. Medications were reviewed. Labs reviewed. Vitals were reviewed. ASSESSMENT: A 74-year-old male, currently in the hospital, likely approaching his baseline. PLAN: We will continue inpatient monitoring. We will order COVID-19 testing for a step-down to speak to a [facility] facility. JOB# [id number]
[2019-09-17] MEDS: Pantoprazole 40 mg EC Tab PO SCH (06:44)
[2019-09-17] MEDS: Fenofibrate, Micronized 134 mg Cap PO SCH (08:03)
[2019-09-17] MEDS: OLANZapine 10 mg Oral Disintegrating Tab PO SCH (08:05)
--- NOTE | 2019-09-17 13:03 | Internal Medicine Prog Note ---
Internal Medicine Subjective - Subjective Service Date: 09/17/19 Patient seen and examined:: with staff Patient is:: awake, ambulating, talking, denies any new complaints Patient Complaints of:: other (Seizure disorder.) Per staff patient has:: no episodes of fall, tolerating meds, other (Remains withdrawn and Severly depressed.) Internal Medicine Objective - Physical Exam Vitals and I&O: Vital Signs Temp 97.2 F 09/17/19 05:54 Pulse 76 09/17/19 08:03 Resp 20 09/17/19 05:54 BP 118/68 09/17/19 08:03 Pulse Ox 98 09/17/19 05:54 Intake & Output 09/16/19 09/17/19 09/17/19 18:59 06:59 18:59 Intake Total 1000 240 Balance 1000 240 Intake: Oral 1000 240 Other: # Voids 4 2 # Bowel Movements 1 Active Medications: Current Medications Acetaminophen (Tylenol) 650 mg PO Q4HR PRN PRN Reason: Mild Pain / Temp above 100 Stop: 11/04/19 23:45 Acetaminophen (Tylenol Extra Strength) 1,000 mg PO Q4HR PRN PRN Reason: moderate pain (4-6) Stop: 11/04/19 23:45 Al Hydrox/Mg Hydrox/Simethicone (Maalox) 30 ml PO Q6H PRN PRN Reason: Dyspepsia Stop: 11/04/19 23:57 Amlodipine Besylate (Norvasc) 5 mg PO QAM [facility] Stop: 11/05/19 08:59 Last Admin: 09/17/19 08:03 Dose: 5 mg [facility] ([facility]) [facility] [place] Protocol Stop: 11/05/19 10:59 Last Admin: 09/17/19 08:03 Dose: 20 mg Fenofibrate (Tricor) 134 mg PO DAILY [facility] Stop: 11/05/19 08:59 Last Admin: 09/17/19 08:03 Dose: 134 mg Lamotrigine (Lamictal) 150 mg PO [facility]; Protocol Stop: 11/05/19 20:59 Last Admin: 09/16/19 21:02 Dose: 150 mg Lorazepam (Ativan) 0.5 mg PO Q4H PRN; Protocol PRN Reason: Anxiety/Agitation Stop: 11/04/19 23:57 Magnesium Hydroxide (Milk Of Magnesia) 30 ml PO HS PRN PRN Reason: Constipation Stop: 11/04/19 23:57 Olanzapine (Zyprexa) 20 mg PO HS [facility]; Protocol Stop: 11/05/19 20:59 Last Admin: 09/16/19 21:02 Dose: 20 mg Olanzapine (Zyprexa Zydis) 10 mg PO QAM [facility]; Protocol Stop: 11/05/19 10:59 Last Admin: 09/17/19 08:05 Dose: 10 mg Oxybutynin Chloride (Ditropan) 5 mg PO BID [facility] Stop: 11/05/19 08:59 Last Admin: 09/17/19 08:03 Dose: 5 mg Pantoprazole Sodium (Protonix) 40 mg PO QDAC [facility] Stop: 11/06/19 07:29 Last Admin: 09/17/19 06:44 Dose: 40 mg Rivaroxaban (Xarelto) 15 mg PO DAILY@1700 [facility] Stop: 11/05/19 16:59 Last Admin: 09/16/19 16:45 Dose: 15 mg Zolpidem Tartrate (Ambien) 5 mg PO HS PRN PRN Reason: Insomnia Stop: 11/04/19 23:57 Last Admin: 09/13/19 20:56 Dose: 5 mg Physical Exam: 74 y/o male patient has been to himself, remains in depressed mood. General: weak, alert HEENT: NC/AT, PERRLA Neck: Supple Lungs: CTAB Cardiovascular: RRR, Normal S2 Abdomen: soft, non-tender, non-distended, positive bowel sound Extremities: clear Neurological: alert, disorganized Internal Medicine Assmt/Plan - Assessment Assessment: Major Depression. Schizophrenia. Hypertension. Hypertension. Anemia. Overactive bladder. Osteoarthritis. CKD. Psychosis. - Plan Plan: Monitor patient closely. Monitor mental health status. Monitor diet and nutritional support. Continue present medications as directed Seizure and safety precaution Pain management. Continue current plan of care Nutritional Asmnt/Malnutr-PDOC - Dietary Evaluation Malnutrition Findings (Please click <Entered> for more info): Nutritional Asmnt/Malnutrition Start: 09/07/19 09: 22 Text: Status: Complete Freq: Protocol: Document 09/07/19 09:22 MMINOCENCIA (Rec: 09/07/19 09:37 MMULROSANGELA [email or web address]) Nutritional Asmnt/Malnutrition Patient General Information Nutritional Screening Moderate Risk Diagnosis Psychosis Pertinent Medical Hx/Surgical Hx Chronic kidney disease, overactive bladder, seizure, hypertension, hyperlipidemia, GERD, cerebral infarction, schizophrenia, major depressive disorder, anxiety. Subjective Information Patient was admitted from [facility]. Tolerating current diet with adequate intake to meet nutrient needs. Current Diet Order/ Nutrition Support Cardiac, chopped, no added sodium Patient / S.O Not Indicated Pertinent Medications maalox, MOM, protonix Nutritional Hx/Data Height 1.85 m Height (Calculated Centimeters) 185.4 Current Weight (lbs) 83.915 kg Weight (Calculated Kilograms) 83.9 Weight (Calculated Grams) 35431.6 [place] Body Weight 184 % [place] Body Weight 100 Body Mass Index (BMI) 24.4 Recent Weight Change No Weight Status Approriate GI Symptoms GI Symptoms None Last BM none noted Difficult in: None Food Allergies No Cultural/Ethnic/Jew Belief none indicated Usual diet at home SOFT DIET, NICHOLAS, LOW CHOLESTEROL, LOW FAT Skin Integrity/Comment: Bruises, Lambert 21 Current %PO Good (75-100%) Estimated Nutritional Goals BEE in Kcals: Using Current wt Calories/Kcals/Kg CBW 84kg 25-30 kcal/kg Kcals Calculated ~7199-1463 kcal/day Protein: Using Current wt Protein g/kgm/kg Protein Calculated ~85gm/day Fluid: ml ~2100-2500ml/day Nutritional Problem No current Nutrition Prob Problem No nutrition diagnosis at this time Intervention/Recommendation Comments 1. Coninue current diet as tolerated by patient. Expected Outcomes/Goals Expected Outcomes/Goals oral intake >75% of meals, weight stable, nutrition related labs WNL F/U LR 09/13
--- NOTE | 2019-09-17 14:47 | Progress Notes ---
DATE: SUBJECTIVE: The patient was seen, chart reviewed, discussed with staff. The patient in the hospital. The patient noted to be calm, generally more cooperative. Poor orientation to name, place, isolative, irritable, does not really want to engage with me. Ongoing symptoms, escalation of behaviors at times, irritability, needing Ativan at times for increasing behaviors, agitation. Currently on dosing of Zyprexa, Lamictal, generally redirectable, likely approaching his baseline. ASSESSMENT: The patient with ongoing behaviors, depressed, selectively mute, preoccupied, not really engaging with me. Medications were reviewed. Labs reviewed. Vitals were reviewed. PLAN: We will continue inpatient monitoring. This is a 74-year-old male with ongoing behaviors, generally calmer, pending COVID-19 test. JOB# [id number]
[2019-09-18] MEDS: Pantoprazole 40 mg EC Tab PO SCH (06:35)
[2019-09-18] MEDS: Fenofibrate, Micronized 134 mg Cap PO SCH (08:59)
[2019-09-18] MEDS: OLANZapine 10 mg Oral Disintegrating Tab PO SCH (09:00)
--- NOTE | 2019-09-18 12:33 | Internal Medicine Prog Note ---
Internal Medicine Subjective - Subjective Service Date: 09/18/19 Patient seen and examined:: with staff, chart reviewed Patient is:: awake, ambulating, talking, denies any new complaints, other ( still has mood swings.) Patient Complaints of:: other (Seizure disorder.) Per staff patient has:: no adverse event, no episodes of fall, tolerating meds, other (Remains withdrawn and Severly depressed.) Internal Medicine Objective - Physical Exam Vitals and I&O: Vital Signs Temp 98.2 F 09/18/19 06:24 Pulse 74 09/18/19 08:59 Resp 16 09/18/19 08:00 BP 127/68 09/18/19 08:59 Pulse Ox 93 09/18/19 06:24 Intake & Output 09/17/19 09/18/19 09/18/19 18:59 06:59 18:59 Intake Total 1200 120 Balance 1200 120 Intake: Oral 1200 120 Other: # Voids 4 2 # Bowel Movements 1 0 Active Medications: Current Medications Acetaminophen (Tylenol) 650 mg PO Q4HR PRN PRN Reason: Mild Pain / Temp above 100 Stop: 11/04/19 23:45 Acetaminophen (Tylenol Extra Strength) 1,000 mg PO Q4HR PRN PRN Reason: moderate pain (4-6) Stop: 11/04/19 23:45 Al Hydrox/Mg Hydrox/Simethicone (Maalox) 30 ml PO Q6H PRN PRN Reason: Dyspepsia Stop: 11/04/19 23:57 Amlodipine Besylate (Norvasc) 5 mg PO QAM [facility] Stop: 11/05/19 08:59 Last Admin: 09/18/19 08:59 Dose: 5 mg Escitalopram Oxalate (Lexapro) 20 mg PO QAM [facility]; Protocol Stop: 11/05/19 10:59 Last Admin: 09/18/19 08:59 Dose: 20 mg Fenofibrate (Tricor) 134 mg PO DAILY [facility] Stop: 11/05/19 08:59 Last Admin: 09/18/19 08:59 Dose: 134 mg Lamotrigine (Lamictal) 150 mg PO [facility]; Protocol Stop: 11/05/19 20:59 Last Admin: 09/17/19 20:47 Dose: 150 mg Lorazepam (Ativan) 0.5 mg PO Q4H PRN; Protocol PRN Reason: Anxiety/Agitation Stop: 11/04/19 23:57 Magnesium Hydroxide (Milk Of Magnesia) 30 ml PO HS PRN PRN Reason: Constipation Stop: 11/04/19 23:57 Olanzapine (Zyprexa) 20 mg PO HS [facility]; Protocol Stop: 11/05/19 20:59 Last Admin: 09/17/19 20:47 Dose: 20 mg Olanzapine (Zyprexa Zydis) 10 mg PO QAM [facility]; Protocol Stop: 11/05/19 10:59 Last Admin: 09/18/19 09:00 Dose: 10 mg Oxybutynin Chloride (Ditropan) 5 mg PO BID [facility] Stop: 11/05/19 08:59 Last Admin: 09/18/19 09:00 Dose: 5 mg Pantoprazole Sodium (Protonix) 40 mg PO QDAC [facility] Stop: 11/06/19 07:29 Last Admin: 09/18/19 06:35 Dose: 40 mg Rivaroxaban (Xarelto) 15 mg PO DAILY@1700 [facility] Stop: 11/05/19 16:59 Last Admin: 09/17/19 16:39 Dose: 15 mg Zolpidem Tartrate (Ambien) 5 mg PO HS PRN PRN Reason: Insomnia Stop: 11/04/19 23:57 Last Admin: 09/13/19 20:56 Dose: 5 mg Physical Exam: 74 y/o male patient has been having mood swings, remains isolated from others, easily agitated and withdrawn. General: weak, alert HEENT: NC/AT, PERRLA Neck: Supple Lungs: CTAB Cardiovascular: RRR, Normal S2 Abdomen: soft, non-tender, non-distended, positive bowel sound Extremities: clear Neurological: alert, disorganized Internal Medicine Assmt/Plan - Assessment Assessment: Pending COVID-19 test. Major Depression. Schizophrenia. Hypertension. Hypertension. Anemia. Overactive bladder. Osteoarthritis. CKD. Psychosis. - Plan Plan: Monitor patient closely. Monitor mental health status. Monitor diet and nutritional support. Continue present medications as directed Seizure and safety precaution Pain management. Continue present care management. Nutritional Asmnt/Malnutr-PDOC - Dietary Evaluation Malnutrition Findings (Please click <Entered> for more info): Nutritional Asmnt/Malnutrition Start: 09/07/19 09: 22 Text: Status: Complete Freq: Protocol: Document 09/07/19 09:22 HERNESTOROSANGELA (Rec: 09/07/19 09:37 MMINOCENCIA RUSSELL- [id number]) Nutritional Asmnt/Malnutrition Patient General Information Nutritional Screening Moderate Risk Diagnosis Psychosis Pertinent Medical Hx/Surgical Hx Chronic kidney disease, overactive bladder, seizure, hypertension, hyperlipidemia, GERD, cerebral infarction, schizophrenia, major depressive disorder, anxiety. Subjective Information Patient was admitted from [facility]. Tolerating current diet with adequate intake to meet nutrient needs. Current Diet Order/ Nutrition Support Cardiac, chopped, no added sodium Patient / S.O Not Indicated Pertinent Medications maalox, MOM, protonix Nutritional Hx/Data Height 1.85 m Height (Calculated Centimeters) 185.4 Current Weight (lbs) 83.915 kg Weight (Calculated Kilograms) 83.9 Weight (Calculated Grams) 31437.6 [place] Body Weight 184 % [place] Body Weight 100 Body Mass Index (BMI) 24.4 Recent Weight Change No Weight Status Approriate GI Symptoms GI Symptoms None Last BM none noted Difficult in: None Food Allergies No Cultural/Ethnic/Scientology Belief none indicated Usual diet at home SOFT DIET, NICHOLAS, LOW CHOLESTEROL, LOW FAT Skin Integrity/Comment: Bruises, Lambert 21 Current %PO Good (75-100%) Estimated Nutritional Goals BEE in Kcals: Using Current wt Calories/Kcals/Kg CBW 84kg 25-30 kcal/kg Kcals Calculated ~6981-2900 kcal/day Protein: Using Current wt Protein g/kgm/kg Protein Calculated ~85gm/day Fluid: ml ~2100-2500ml/day Nutritional Problem No current Nutrition Prob Problem No nutrition diagnosis at this time Intervention/Recommendation Comments 1. Coninue current diet as tolerated by patient. Expected Outcomes/Goals Expected Outcomes/Goals oral intake >75% of meals, weight stable, nutrition related labs WNL F/U LR 09/13
--- NOTE | 2019-09-18 17:02 | Progress Notes ---
DATE: 09/18/2019 SUBJECTIVE: The patient was seen today, 09/18/2019, approaching his baseline, mostly withdrawn, selectively mute, mumbling to self. He is not particularly agitated. Staff tried to do COVID-19 testing. Unfortunately, he was not open to this and was fighting them. He is not particularly combative now, just noted to be with irritability. Poor frustration tolerance. Does not say much to me. Today, I tried to spend some time talking to him, but I am not really able to engage with him. Staff noting he is calm, generally cooperative. We are trying to make efforts to get COVID-19 testing as he is likely approaching his baseline and could likely be cared for at a custodial. PLAN: We will continue inpatient monitoring. Time spent with the patient, discussing with staff, evaluating him for any medication side effects. JOB# [id number]
[2019-09-19] MEDS: Pantoprazole 40 mg EC Tab PO SCH (06:40)
[2019-09-19] MEDS: OLANZapine 10 mg Oral Disintegrating Tab PO SCH (08:34)
[2019-09-19] MEDS: Fenofibrate, Micronized 134 mg Cap PO SCH (08:34)
--- NOTE | 2019-09-19 13:23 | Internal Medicine Prog Note ---
Internal Medicine Subjective - Subjective Service Date: 09/19/19 Patient is:: awake, ambulating, talking, denies any new complaints, other ( still has mood swings.) Patient Complaints of:: other (Seizure disorder.) Per staff patient has:: no adverse event, no episodes of fall, tolerating meds, other (Remains withdrawn and Severly depressed.) Internal Medicine Objective - Physical Exam Vitals and I&O: Vital Signs Temp 98.2 F 09/19/19 06:48 Pulse 96 09/19/19 08:34 Resp 16 09/19/19 08:00 BP 128/87 09/19/19 08:34 Pulse Ox 97 09/19/19 06:48 Intake & Output 09/18/19 09/19/19 09/19/19 18:59 06:59 18:59 Intake Total 1200 120 Balance 1200 120 Intake: Oral 1200 120 Other: # Voids 4 2 # Bowel Movements 0 0 Active Medications: Current Medications Acetaminophen (Tylenol) 650 mg PO Q4HR PRN PRN Reason: Mild Pain / Temp above 100 Stop: 11/04/19 23:45 Acetaminophen (Tylenol Extra Strength) 1,000 mg PO Q4HR PRN PRN Reason: moderate pain (4-6) Stop: 11/04/19 23:45 Al Hydrox/Mg Hydrox/Simethicone (Maalox) 30 ml PO Q6H PRN PRN Reason: Dyspepsia Stop: 11/04/19 23:57 Amlodipine Besylate (Norvasc) 5 mg PO QAM [facility] Stop: 11/05/19 08:59 Last Admin: 09/19/19 08:34 Dose: 5 mg Escitalopram Oxalate (Lexapro) [facility] [place] Protocol Stop: 11/05/19 10:59 Last Admin: 09/19/19 08:34 Dose: 20 mg Fenofibrate (Tricor) 134 mg PO DAILY [facility] Stop: 11/05/19 08:59 Last Admin: 09/19/19 08:34 Dose: 134 mg Lamotrigine (Lamictal) 150 mg PO [facility]; Protocol Stop: 11/05/19 20:59 Last Admin: 09/18/19 20:43 Dose: 150 mg Lorazepam (Ativan) 0.5 mg PO Q4H PRN; Protocol PRN Reason: Anxiety/Agitation Stop: 11/04/19 23:57 Last Admin: 09/19/19 08:34 Dose: 0.5 mg Magnesium Hydroxide (Milk Of Magnesia) 30 ml PO HS PRN PRN Reason: Constipation Stop: 11/04/19 23:57 Olanzapine (Zyprexa) 20 mg PO HS [facility]; Protocol Stop: 11/05/19 20:59 Last Admin: 09/18/19 20:43 Dose: 20 mg Olanzapine (Zyprexa Zydis) 10 mg PO QAM [facility]; Protocol Stop: 11/05/19 10:59 Last Admin: 09/19/19 08:34 Dose: 10 mg Oxybutynin Chloride (Ditropan) 5 mg PO BID [facility] Stop: 11/05/19 08:59 Last Admin: 09/19/19 08:34 Dose: 5 mg Pantoprazole Sodium (Protonix) 40 mg PO QDAC [facility] Stop: 11/06/19 07:29 Last Admin: 09/19/19 06:40 Dose: 40 mg Rivaroxaban (Xarelto) 15 mg PO DAILY@1700 [facility] Stop: 11/05/19 16:59 Last Admin: 09/18/19 16:59 Dose: 15 mg Zolpidem Tartrate (Ambien) 5 mg PO HS PRN PRN Reason: Insomnia Stop: 11/04/19 23:57 Last Admin: 09/13/19 20:56 Dose: 5 mg General: weak, alert HEENT: NC/AT, PERRLA Neck: Supple Lungs: CTAB Cardiovascular: RRR, Normal S2 Abdomen: soft, non-tender, non-distended, positive bowel sound Extremities: clear Neurological: alert, disorganized Internal Medicine Assmt/Plan - Assessment Assessment: psychosis htn overactive bladder oa anemia - Plan Plan: fall precautions range of motion with nursing staff continue current plan of care Nutritional Asmnt/Malnutr-PDOC - Dietary Evaluation Malnutrition Findings (Please click <Entered> for more info): Nutritional Asmnt/Malnutrition Start: 09/07/19 09: 22 Text: Status: Complete Freq: Protocol: Document 09/07/19 09:22 MMINOCENCIA (Rec: 09/07/19 09:37 MMULROSANGELA RUSSELL- [id number]) Nutritional Asmnt/Malnutrition Patient General Information Nutritional Screening Moderate Risk Diagnosis Psychosis Pertinent Medical Hx/Surgical Hx Chronic kidney disease, overactive bladder, seizure, hypertension, hyperlipidemia, GERD, cerebral infarction, schizophrenia, major depressive disorder, anxiety. Subjective Information Patient was admitted from [facility]. Tolerating current diet with adequate intake to meet nutrient needs. Current Diet Order/ Nutrition Support Cardiac, chopped, no added sodium Patient / S.O Not Indicated Pertinent Medications maalox, MOM, protonix Nutritional Hx/Data Height 6 ft 1 in Height (Calculated Centimeters) 185.4 Current Weight (lbs) 185 lb Weight (Calculated Kilograms) 83.9 Weight (Calculated Grams) 92120.6 [place] Body Weight 184 % [place] Body Weight 100 Body Mass Index (BMI) 24.4 Recent Weight Change No Weight Status Approriate GI Symptoms GI Symptoms None Last BM none noted Difficult in: None Food Allergies No Cultural/Ethnic/Restorationism Belief none indicated Usual diet at home SOFT DIET, NICHOLAS, LOW CHOLESTEROL, LOW FAT Skin Integrity/Comment: Bruises, Lambert 21 Current %PO Good (75-100%) Estimated Nutritional Goals BEE in Kcals: Using Current wt Calories/Kcals/Kg CBW 84kg 25-30 kcal/kg Kcals Calculated ~9189-5290 kcal/day Protein: Using Current wt Protein g/kgm/kg Protein Calculated ~85gm/day Fluid: ml ~2100-2500ml/day Nutritional Problem No current Nutrition Prob Problem No nutrition diagnosis at this time Intervention/Recommendation Comments 1. Coninue current diet as tolerated by patient. Expected Outcomes/Goals Expected Outcomes/Goals oral intake >75% of meals, weight stable, nutrition related labs WNL F/U LR 09/13
--- NOTE | 2019-09-19 16:34 | Progress Notes ---
DATE: 09/19/2019 SUBJECTIVE: A 74-year-old male, likely at his baseline, slept about 5 hours. No overt agitation or distress. Still somewhat irritable at times, angry at times, confused appearing. Staff noting he has been looking for his belongings, currently pending COVID-19 testing. Mood "okay." He tells me that he is going to leave today. We are actually trying to get him out, but the [facility] will not accept him until he has COVID-19 testing, unable to care for his basic needs outside of a structured setting, so we are pending this test. Fair sleep and appetite redirectable. Medications reviewed. Labs reviewed. Vitals reviewed. Blood pressure 129/80, pulse of 87. ASSESSMENT: A 74-year-old male still irritable, requiring some prompting, redirection. PLAN: We will follow in the hospital, likely discharge in the next 1-2 days. JOB# [id number]
[2019-09-20] MEDS: Pantoprazole 40 mg EC Tab PO SCH (06:40)
[2019-09-20] MEDS: Fenofibrate, Micronized 134 mg Cap PO SCH (08:34)
[2019-09-20] MEDS: OLANZapine 10 mg Oral Disintegrating Tab PO SCH (08:34)
--- NOTE | 2019-09-20 11:28 | Internal Medicine Prog Note ---
Internal Medicine Subjective - Subjective Service Date: 09/20/19 Patient seen and examined:: with staff, chart reviewed Patient is:: awake, ambulating, talking, denies any new complaints, other ( still has mood swings.) Patient Complaints of:: other (Seizure disorder.) Per staff patient has:: no adverse event, no episodes of fall, tolerating meds, other (Remains withdrawn and Severly depressed.) Internal Medicine Objective - Results Recent Labs: Laboratory Last Values Coronavirus (PCR) Negative (Negative) 09/18/19 12:38 - Physical Exam Vitals and I&O: Vital Signs Temp 97.0 F 09/20/19 05:40 Pulse 96 09/20/19 08:34 Resp 20 09/20/19 07:47 BP 143/68 09/20/19 08:34 Pulse Ox 96 09/20/19 05:40 Intake & Output 09/19/19 09/20/19 09/20/19 18:59 06:59 18:59 Intake Total 1200 240 Balance 1200 240 Intake: Oral 1200 240 Other: # Voids 4 2 # Bowel Movements 0 Active Medications: Current Medications Acetaminophen (Tylenol) 650 mg PO Q4HR PRN PRN Reason: Mild Pain / Temp above 100 Stop: 11/04/19 23:45 Acetaminophen (Tylenol Extra Strength) 1,000 mg PO Q4HR PRN PRN Reason: moderate pain (4-6) Stop: 11/04/19 23:45 Al Hydrox/Mg Hydrox/Simethicone (Maalox) 30 ml PO Q6H PRN PRN Reason: Dyspepsia Stop: 11/04/19 23:57 Amlodipine Besylate (Norvasc) 5 mg PO QAM [facility] Stop: 11/05/19 08:59 Last Admin: 09/20/19 08:34 Dose: 5 mg Escitalopram Oxalate (Lexapro) 20 mg PO QAM [facility]; Protocol Stop: 11/05/19 10:59 Last Admin: 09/20/19 08:34 Dose: 20 mg Fenofibrate (Tricor) 134 mg PO DAILY [facility] Stop: 11/05/19 08:59 Last Admin: 09/20/19 08:34 Dose: 134 mg Lamotrigine (Lamictal) 150 mg PO [facility]; Protocol Stop: 11/05/19 20:59 Last Admin: 09/19/19 21:18 Dose: 150 mg Lorazepam (Ativan) 0.5 mg PO Q4H PRN; Protocol PRN Reason: Anxiety/Agitation Stop: 11/04/19 23:57 Last Admin: 09/19/19 08:34 Dose: 0.5 mg Magnesium Hydroxide (Milk Of Magnesia) 30 ml PO HS PRN PRN Reason: Constipation Stop: 11/04/19 23:57 Olanzapine (Zyprexa) 20 mg PO HS [facility]; Protocol Stop: 11/05/19 20:59 Last Admin: 09/19/19 21:18 Dose: 20 mg Olanzapine (Zyprexa Zydis) 10 mg PO QAM [facility]; Protocol Stop: 11/05/19 10:59 Last Admin: 09/20/19 08:34 Dose: 10 mg Oxybutynin Chloride (Ditropan) 5 mg PO BID [facility] Stop: 11/05/19 08:59 Last Admin: 09/20/19 08:35 Dose: 5 mg Pantoprazole Sodium (Protonix) 40 mg PO QDAC [facility] Stop: 11/06/19 07:29 Last Admin: 09/20/19 06:40 Dose: 40 mg Rivaroxaban (Xarelto) 15 mg PO DAILY@1700 [facility] Stop: 11/05/19 16:59 Last Admin: 09/19/19 16:57 Dose: 15 mg Zolpidem Tartrate (Ambien) 5 mg PO HS PRN PRN Reason: Insomnia Stop: 11/04/19 23:57 Last Admin: 09/13/19 20:56 Dose: 5 mg Physical Exam: 74 y/o male patient has been irritable and easily frustrated. General: weak, alert HEENT: NC/AT, PERRLA Neck: Supple Lungs: CTAB Cardiovascular: RRR, Normal S2 Abdomen: soft, non-tender, non-distended, positive bowel sound Extremities: clear Neurological: alert, disorganized Internal Medicine Assmt/Plan - Assessment Assessment: Psychosis. Major Depression. Schizophrenia. Hypertension. Hypertension. Anemia. Overactive bladder. Osteoarthritis. CKD. - Plan Plan: Monitor patient closely. Monitor mental health status. Monitor diet and nutritional support. Continue present medications as directed Seizure and safety precaution Pain management. Continue present care management. Nutritional Asmnt/Malnutr-PDOC - Dietary Evaluation Malnutrition Findings (Please click <Entered> for more info): Nutritional Asmnt/Malnutrition Start: 09/07/19 09: 22 Text: Status: Complete Freq: Protocol: Document 09/07/19 09:22 HERNESTOKim (Rec: 09/07/19 09:37 DEYANIRA RUSSELL- [id number]) Nutritional Asmnt/Malnutrition Patient General Information Nutritional Screening Moderate Risk Diagnosis Psychosis Pertinent Medical Hx/Surgical Hx Chronic kidney disease, overactive bladder, seizure, hypertension, hyperlipidemia, GERD, cerebral infarction, schizophrenia, major depressive disorder, anxiety. Subjective Information Patient was admitted from [facility]. Tolerating current diet with adequate intake to meet nutrient needs. Current Diet Order/ Nutrition Support Cardiac, chopped, no added sodium Patient / S.O Not Indicated Pertinent Medications maalox, MOM, protonix Nutritional Hx/Data Height 1.85 m Height (Calculated Centimeters) 185.4 Current Weight (lbs) 83.915 kg Weight (Calculated Kilograms) 83.9 Weight (Calculated Grams) 19253.6 [place] Body Weight 184 % [place] Body Weight 100 Body Mass Index (BMI) 24.4 Recent Weight Change No Weight Status Approriate GI Symptoms GI Symptoms None Last BM none noted Difficult in: None Food Allergies No Cultural/Ethnic/Evangelical Belief none indicated Usual diet at home SOFT DIET, NICHOLAS, LOW CHOLESTEROL, LOW FAT Skin Integrity/Comment: Bruises, Lambert 21 Current %PO Good (75-100%) Estimated Nutritional Goals BEE in Kcals: Using Current wt Calories/Kcals/Kg CBW 84kg 25-30 kcal/kg Kcals Calculated ~2808-5338 kcal/day Protein: Using Current wt Protein g/kgm/kg Protein Calculated ~85gm/day Fluid: ml ~2100-2500ml/day Nutritional Problem No current Nutrition Prob Problem No nutrition diagnosis at this time Intervention/Recommendation Comments 1. Coninue current diet as tolerated by patient. Expected Outcomes/Goals Expected Outcomes/Goals oral intake >75% of meals, weight stable, nutrition related labs WNL F/U LR 09/13
--- NOTE | 2019-09-21 05:56 | Progress Notes ---
DATE: 09/20/2019 Case was discussed with staff of the patient, reviewed records. The patient is a 74-year-old male who was transferred from [place] on hold because of increasing agitation, yelling, confusion, and refusing medications. History of chronic kidney disease, seizure disorder, and overactive bladder. The patient was diagnosed with history of schizophrenia, sleeping better, eating better, decreased agitation, distress, at times irritable, and confused. He has been tested for COVID-19. Nursing placement is pending, if COVID-19 is positive. The patient is unable to care for his basic needs, no side effects with the medication, no sedation, no nausea, or no extrapyramidal symptoms. His current medication is Lexapro 20 mg a day and olanzapine 20 mg at bedtime and 10 mg in the morning. We will continue outpatient group therapy, milieu therapy, adjust medication as needed. JOB# [id number]
== END 2019-09-20 16:14 | DRG 885 ==
LOC: GERO 21:13
PROVIDERS: ADMIT Psychiatry & Neurology Psychiatry; ATTEND Psychiatry & Neurology Psychiatry
DX: F25.1 Schizoaffective disorder, depressive type (principal); N18.9 Chronic kidney disease, unspecified; N32.81 Overactive bladder; M19.90 Unspecified osteoarthritis, unspecified site; D64.9 Anemia, unspecified; F29 Unspecified psychosis not due to a substance or known physiological condition; I12.9 Hypertensive chronic kidney disease with stage 1 through stage 4 chronic kidney disease, or unspecified chronic kidney disease; Z20.828 Contact with and (suspected) exposure to other viral communicable diseases
CPT/HCPCS: 83036-90; 90899; G0410; J7051; U0003-CS; Z7610